=== PATIENT | male | born 1950 | race Caucasian/White ===

== ENCOUNTER → 2017-06-04 | Outpatient (CLI) | payer MEDICARE, OTHER ==
[2017-06-04 08:48] LABS: ALT 78 U/L (21-72); AST 43 U/L (17-59); Albumin 4.1 g/dL (3.5-5.0); Alkaline Phosphatase 65 U/L (38-126); Anion Gap 16 mmol/L; Blood Urea Nitrogen 14 mg/dL (9-20); Calcium 9.2 mg/dL (8.4-10.2); Carbon Dioxide 24 mmol/L (22-30); Chloride 103 mmol/L (98-107); Cholesterol 130 mg/dL (<200); Glucose 150 mg/dL (74-99); HDL Cholesterol 35 mg/dL (40-60); LDL Cholesterol,Calculated 59 mg/dL (0-99); Potassium 4.4 mmol/L (3.5-5.1); Sodium 143 mmol/L (137-145); Total Bilirubin 0.6 mg/dL (0.2-1.3); Total Protein 6.7 g/dL (6.3-8.2); Triglycerides 181 mg/dL (<150)
== END | disposition home or self-care (01) ==
LOC: LABWHC1 08:18
PROVIDERS: ATTEND Internal Medicine Interventional Cardiology
DX: E78.2 Mixed hyperlipidemia (principal)
CPT/HCPCS: 36415; 80053; 80061

== ENCOUNTER → 2018-02-11 | Outpatient (CLI) | payer MEDICARE, OTHER ==
[2018-02-11 17:38] LABS: Albumin 4.1 g/dL (3.80-4.90); Albumin/Globulin Ratio 2.56 (1.20-2.10); Anion Gap 9.2 mmol/L (4.00-12.00); Calcium 8.9 mg/dL (8.7-10.3); Carbon Dioxide 24.8 mmol/L (21.6-31.8); Globulin 1.6 g/dL (1.6-3.3); LDL Cholesterol,Calculated 75.2 mg/dL (0.0-131.0); Potassium 4.2 mmol/L (3.5-5.5); Total Bilirubin 0.5 mg/dL (0.3-1.2); Total Protein 5.7 g/dL (6.2-8.2); VLDL Calculation 27.8 mg/dL (5.00-40.00)
== END ==
LOC: LABWHC1 08:30
PROVIDERS: ATTEND Internal Medicine Interventional Cardiology
DX: E78.2 Mixed hyperlipidemia (principal)
CPT/HCPCS: 36415; 80053; 80061

== ENCOUNTER → 2018-08-16 | Outpatient (CLI) | payer MEDICARE, OTHER ==
[2018-08-16 16:13] LABS: African American GFR (CKD) 102.1 (60.0-200.0); Albumin 4.3 g/dL (3.80-4.90); Albumin/Globulin Ratio 2.39 (1.60-3.17); Anion Gap 10.4 mmol/L (4.00-12.00); BUN/Creat Ratio 12.22 Ratio (12.00-20.00); Calcium 9.2 mg/dL (8.7-10.3); Carbon Dioxide 24.6 mmol/L (21.6-31.8); Globulin 1.8 g/dL (1.6-3.3); LDL Cholesterol,Calculated 55.8 mg/dL (0.0-131.0); Potassium 4.4 mmol/L (3.5-5.5); Total Bilirubin 0.5 mg/dL (0.2-1.2); Total Protein 6.1 g/dL (6.2-8.2); VLDL Calculation 32.2 mg/dL (5.00-40.00)
== END | disposition home or self-care (01) ==
LOC: LABWHC1 09:58
PROVIDERS: ATTEND Internal Medicine Interventional Cardiology
DX: E78.2 Mixed hyperlipidemia (principal)
CPT/HCPCS: 36415; 80053; 80061

== ENCOUNTER → 2019-02-24 | Outpatient (CLI) | payer MEDICARE, OTHER ==
[2019-02-24 16:02] LABS: African American GFR (CKD) 89.2 (60.0-200.0); Albumin 4.4 g/dL (3.80-4.90); Albumin/Globulin Ratio 2.32 (1.60-3.17); Anion Gap 6.4 mmol/L (4.00-12.00); Calcium 9.5 mg/dL (8.7-10.3); Carbon Dioxide 27.6 mmol/L (21.6-31.8); Chol/HDL Ratio 4.18; Globulin 1.9 g/dL (1.6-3.3); LDL Cholesterol,Calculated 93.8 mg/dL (0.0-131.0); Potassium 5.4 mmol/L (3.5-5.5); Total Bilirubin 0.5 mg/dL (0.3-1.2); Total Protein 6.3 g/dL (6.2-8.2); VLDL Calculation 30.2 mg/dL (5.00-40.00)
== END | disposition home or self-care (01) ==
LOC: LABWHC1 09:02
PROVIDERS: ATTEND Internal Medicine Interventional Cardiology
DX: E78.2 Mixed hyperlipidemia (principal)
CPT/HCPCS: 36415; 80053; 80061

== ENCOUNTER → 2019-05-13 | Outpatient (CLI) | payer MEDICARE, OTHER ==
[2019-05-13 10:45] LABS: African American GFR (CKD) >90 (>60 ml/min/1.73 sqM); Anion Gap 12 mmol/L; Blood Urea Nitrogen 18 mg/dL (9-20); Carbon Dioxide 25 mmol/L (22-30); Chloride 102 mmol/L (98-107); Non-African American GFR(CKD) >90 (>60 ml/min/1.73 sqM); Potassium 4.4 mmol/L (3.5-5.1); Sodium 139 mmol/L (137-145)
[2019-05-13 10:57] LABS: HCT 42.7 % (39.0-53.0); MCH 31.1 pg (25.0-35.0); MCHC 32.9 g/dL (31.0-37.0); MCV 94.8 fL (80.0-100.0); Mean Platelet Volume 7.8; Platelet Count 308 k/uL (150-450); WBC 8.6 k/uL (3.8-10.6)
== END | disposition home or self-care (01) ==
LOC: LABWHC1 09:47
PROVIDERS: ATTEND Internal Medicine Interventional Cardiology
DX: Z01.818 Encounter for other preprocedural examination (principal); I70.213 Atherosclerosis of native arteries of extremities with intermittent claudication, bilateral legs
CPT/HCPCS: 36415; 80051; 82565; 84520; 85027

== ENCOUNTER → 2019-09-09 | Outpatient (CLI) | payer MEDICARE, OTHER ==
[2019-09-09 17:01] LABS: Chol/HDL Ratio 3.86; LDL Cholesterol,Calculated 46.8 mg/dL (0.0-131.0); VLDL Calculation 33.2 mg/dL (5.00-40.00)
== END | disposition home or self-care (01) ==
LOC: LABWHC1 08:51
PROVIDERS: ATTEND Nurse Practitioner Adult Health
DX: E78.2 Mixed hyperlipidemia (principal)
CPT/HCPCS: 36415; 80061

== ENCOUNTER → 2019-10-22 | Outpatient (CLI) | payer MEDICARE, OTHER ==
--- NOTE | 2019-10-22 12:53 | CT ---
EXAMINATION TYPE: CT lumbar spine wo con DATE OF EXAM: 10/22/2019 12:44 PM COMPARISON: None. HISTORY: spondylosis per order. CT DLP: 988.9 mGycm Automated exposure control for dose reduction was used. Unenhanced CT of the lumbar spine was performed. Bone and soft tissue window settings are submitted as well as coronal and sagittal reconstructions. There are 5 lumbar-type vertebra. And mild to moderate disc space near greatest posteriorly at L5-S1 level with some endplate sclerosis. Vertebral body heights are maintained. Alignment is satisfactory on sagittal images. Mild multilevel anterior and lateral spurring. No acute fracture or dislocation i s seen. Coronal images show slight spectral convex scoliotic curvature centered at L3 level. Sternal wires noted on localizer. Review of axial images shows T12-L1 level to appear within normal limits. Axial images at the L1-L2 level show mild broad disc bulge mildly effacing the anterior thecal sac, b ilateral neural foramina are patent. Axial images at the L2-L3 levels show mild facet degenerative changes bilaterally. Axial images at the L3-L4 levels with mild facet degenerative changes bilaterally. There is mild/mode rate broad-based posterior disc protrusion mildly effacing anterior thecal sac, there is tmve-eq-evqe rate bilateral anterior inferior neural foraminal narrowing. Axial images at the L4-L5 level show mild/moderate facet degenerative changes bilaterally. There is m oderate broad disc bulge with broad-based right paracentral/foraminal disc protrusion. There is effac ement of the anterior thecal sac. There is moderate right and mild left-sided intraventricular neurof oraminal narrowing. Axial images at the L5-S1 levels show moderate facet arthropathy bilaterally. There is left paracentr al spur disc complex axial image 75. There is mild bilateral neural foraminal narrowing. Moderate to severe calcified plaque abdominal aorta extends into iliac branch vessels. Paraspinal mus marlena bulk is maintained. IMPRESSION: Multilevel degenerative changes greatest at L4-L5 level as detailed above. Alignment all satisfactory. No paraspinal masses are identified. Lumbar segments are intact.
== END | disposition home or self-care (01) ==
LOC: RADCTMAIN 12:20
PROVIDERS: ATTEND Physical Medicine & Rehabilitation
DX: M47.816 Spondylosis without myelopathy or radiculopathy, lumbar region (principal)
CPT/HCPCS: 72131

== ENCOUNTER → 2020-03-22 | Outpatient (CLI) | payer MEDICARE ==
[2020-03-22 14:50] LABS: African American GFR (CKD) 100.6 (60.0-200.0); Albumin 4.4 g/dL (3.80-4.90); Albumin/Globulin Ratio 2.32 (1.60-3.17); Anion Gap 10.2 mmol/L (4.00-12.00); BUN/Creat Ratio 14.44 Ratio (12.00-20.00); Calcium 9.3 mg/dL (8.7-10.3); Carbon Dioxide 25.8 mmol/L (21.6-31.8); Chol/HDL Ratio 3.84; Globulin 1.9 g/dL (1.6-3.3); LDL Cholesterol,Calculated 38.8 mg/dL (0.0-131.0); Non-African American GFR(CKD) 86.8 (60.0-200.0); Potassium 4.5 mmol/L (3.5-5.5); Total Bilirubin 0.6 mg/dL (0.2-1.2); Total Protein 6.3 g/dL (6.2-8.2); VLDL Calculation 49.2 mg/dL (5.00-40.00)
== END | disposition home or self-care (01) ==
LOC: LABWHC1 09:08
PROVIDERS: ATTEND Internal Medicine Interventional Cardiology
DX: E78.2 Mixed hyperlipidemia (principal)
CPT/HCPCS: 36415; 80053; 80061

== ENCOUNTER → 2020-09-08 | Outpatient (CLI) | payer MEDICARE ==
[2020-09-08 22:53] LABS: Chol/HDL Ratio 3.82; LDL Cholesterol,Calculated 34.4 mg/dL (0.0-131.0); VLDL Calculation 44.6 mg/dL (5.00-40.00)
[2020-09-08 22:54] LABS: African American GFR (CKD) 105.6 (60.0-200.0); Albumin/Globulin Ratio 1.67 (1.60-3.17); Anion Gap 10.5 mmol/L (4.00-12.00); BUN/Creat Ratio 16.25 Ratio (12.00-20.00); Calcium 9.2 mg/dL (8.7-10.3); Carbon Dioxide 23.5 mmol/L (21.6-31.8); Globulin 2.4 g/dL (1.6-3.3); Non-African American GFR(CKD) 91.1 (60.0-200.0); Potassium 4.7 mmol/L (3.5-5.5); Total Bilirubin 0.4 mg/dL (0.2-1.2); Total Protein 6.4 g/dL (6.2-8.2)
== END | disposition home or self-care (01) ==
LOC: LABWHC1 08:56
PROVIDERS: ATTEND Internal Medicine Interventional Cardiology
DX: E78.2 Mixed hyperlipidemia (principal)
CPT/HCPCS: 36415; 80053; 80061

== ENCOUNTER 2020-11-15 06:30 | Day surgery (SDC) | payer MEDICARE ==
[2020-11-11 13:27] VITALS: BMI 29.5
[2020-11-15] MEDS ORDERED: ASPIRIN 325 MG TAB PO PRN (06:39)
[2020-11-15] MEDS ORDERED: ALPRAZolam 0.25 MG TAB PO PRN (06:39)
[2020-11-15] MEDS ORDERED: SODIUM CHLORIDE 0.9% 1,000 ML in EMPTY BAG 1 BAG IV ONE (06:39)
[2020-11-15 07:06] LABS: Glucose,Whole Blood 191 mg/dL (75-99)
[2020-11-15 07:24] VITALS: TEMP 98.1
[2020-11-15 07:30] LABS: Basophils # (A) 0.1 k/uL (0-0.2); Basophils % (A) 1 %; Eosinophils # (A) 0.3 k/uL (0-0.7); Eosinophils % (A) 4 %; HGB 13.3 gm/dL (13.0-17.5); Lymphocytes # (A) 1.7 k/uL (1.0-4.8); Lymphocytes % (A) 25 %; MCH 32.1 pg (25.0-35.0); MCV 94.3 fL (80.0-100.0); Mean Platelet Volume 7.7; Monocytes # (A) 0.5 k/uL (0-1.0); Monocytes % (A) 8 %; Neutrophils # (A) 4.3 k/uL (1.3-7.7); Neutrophils % (A) 61 %; Platelet Count 266 k/uL (150-450); RBC 4.14 m/uL (4.30-5.90); RDW 12.6 % (11.5-15.5)
[2020-11-15] MEDS ORDERED: LIDOCAINE 1% INJ 10MG/ML (20 ML MDV) SQ ONE (07:41)
[2020-11-15] MEDS ORDERED: MIDAZOLAM 2 MG/2 ML VIAL IV ONE (07:43)
[2020-11-15] MEDS ORDERED: IOPAMIDOL-250 100ML BTL INTRAARTER ONE (07:52)
[2020-11-15 07:55] LABS: African American GFR (CKD) >90 (>60 ml/min/1.73 sqM); Anion Gap 12 mmol/L; Blood Urea Nitrogen 15 mg/dL (9-20); Calcium 9.3 mg/dL (8.4-10.2); Carbon Dioxide 22 mmol/L (22-30); Chloride 107 mmol/L (98-107); Glucose 198 mg/dL (74-99); Non-African American GFR(CKD) >90 (>60 ml/min/1.73 sqM); Potassium 3.9 mmol/L (3.5-5.1); Sodium 141 mmol/L (137-145)
[2020-11-15] MEDS ORDERED: SODIUM CHLORIDE 0.9% 1,000 ML IV SCH (08:00)
--- NOTE | 2020-11-15 10:10 | PCN ---
PROCEDURE NOTE DATE OF SERVICE: 11/15/2020 PERFORMING PHYSICIAN: Vinny Jimenez M.D. PROCEDURE PERFORMED: 1. Abdominal aortogram. 2. Bilateral lower extremity runoff. INDICATION: This is a 70-year-old gentleman who sees Dr. Sena regularly with peripheral arterial disease and prior revascularization of the left iliac in the past who was experiencing symptoms of intermittent claudication in bilateral lower extremities. He underwent an arterial duplex study, the results of which were abnormal, and for that reason he was sent for an angiogram. APPROACH: Right common femoral artery. COMPLICATIONS: None. LEVEL OF SEDATION: Moderate, with sedation length of 14 minutes. PROCEDURE DESCRIPTION: After obtaining informed consent, the patient was brought to the cardiac cath laboratory. The right common femoral artery was cannulated using micropuncture technique. The micropuncture wire passed easily. Then I placed a 5-Irish sheath at the right common femoral artery. Please note that the right common femoral artery was cannulated using micropuncture technique under ultrasound guidance. An abdominal aortogram and bilateral lower extremity runoff were performed using 5- Irish pigtail catheter which was initially placed at the level of the renal arteries. Then it was pulled into above the bifurcation of the aorta into right and left common iliac arteries. The procedure was completed without any complication. SELECTIVE PERIPHERAL ANGIOGRAM: 1. The aorta appeared to have mild to moderate diffuse disease without any high-grade stenosis and without any aneurysmal formation. Please note that the aorta is calcified. 2. Common iliac arteries. The right common iliac artery appeared to have mild disease only. The left common iliac artery also appeared to have mild disease only. 3. Internal iliac arteries. Both are patent. 4. Common external iliac arteries. The right external iliac artery is occluded and the left external iliac artery is stented with critical disease that appeared to be in- stent as well as de [place]. 5. Common femoral arteries. Both appeared to have intermediate disease bilaterally. 6. Profundae. Both profundae are patent. 7. SFA. The right SFA has severe disease by the Mohit canal and the left SFA has a focal lesion that appeared to be in the range of 80%. 8. Popliteal arteries. Both popliteals appeared to have mild disease only. 9. Below the knee. The arteries below the knee were not well visualized or opacified. CONCLUSION: 1. Critical bilateral external iliac artery disease. 2. Critical bilateral SFA disease. POSTPROCEDURE MANAGEMENT: 1. LEATHER GOODS SALES REPRESENTATIVE of the right and left iliac arteries. 2. LEATHER GOODS SALES REPRESENTATIVE of the right and left SFA if the patient remains symptomatic. MMPUJAL / IJN: [id number] /
[2020-11-15 11:11] VITALS: BP 88/55; PULSE 50; RESP 16
--- NOTE | 2020-11-15 11:35 | IR ---
EXAMINATION TYPE: IR angio abdominal w runoff DATE OF EXAM: 11/15/2020 COMPARISON: NONE HISTORY: Fluoroscopy time. Fluoroscopy was provided to the referring clinician.
== END 2020-11-15 13:42 | disposition home or self-care (01) ==
LOC: CATHCVL 06:30
PROVIDERS: ATTEND Internal Medicine Interventional Cardiology
DX: I25.10 Atherosclerotic heart disease of native coronary artery without angina pectoris (principal); Z20.822 Contact with and (suspected) exposure to COVID-19
CPT/HCPCS: 36200; 75625; 75716; 76937; 80048; 85025; 87635; C1769 ×3; C1894; J2250; J2001; Q9966

== ENCOUNTER → 2020-11-23 | Outpatient (CLI) | payer MEDICARE ==
[2020-11-23 14:40] LABS: HGB 13.7 gm/dL (13.0-17.5); MCH 31.3 pg (25.0-35.0); MCHC 33.4 g/dL (31.0-37.0); MCV 93.7 fL (80.0-100.0); Mean Platelet Volume 7.6; Platelet Count 292 k/uL (150-450); RBC 4.38 m/uL (4.30-5.90); RDW 13.4 % (11.5-15.5); WBC 6.8 k/uL (3.8-10.6)
[2020-11-23 14:55] LABS: African American GFR (CKD) >90 (>60 ml/min/1.73 sqM); Anion Gap 10 mmol/L; Blood Urea Nitrogen 13 mg/dL (9-20); Carbon Dioxide 25 mmol/L (22-30); Chloride 105 mmol/L (98-107); Non-African American GFR(CKD) 87 (>60 ml/min/1.73 sqM); Potassium 4.7 mmol/L (3.5-5.1); Sodium 140 mmol/L (137-145)
== END | disposition home or self-care (01) ==
LOC: LABPAT 13:38
PROVIDERS: ATTEND Internal Medicine Interventional Cardiology
DX: Z01.812 Encounter for preprocedural laboratory examination (principal); I70.213 Atherosclerosis of native arteries of extremities with intermittent claudication, bilateral legs
CPT/HCPCS: 36415; 80051; 82565; 84520; 85027

== ENCOUNTER 2020-12-08 07:22 | Day surgery (SDC) | payer MEDICARE ==
[2020-11-29 09:22] VITALS: BMI 29.5
[~2020-12-08 07:22] MED LIST: ALPRAZolam 0.25 MG TAB PO PRN; ASPIRIN 325 MG TAB PO PRN; SODIUM CHLORIDE 0.9% 1,000 ML in EMPTY BAG 1 BAG IV ONE
[2020-12-08] MEDS ORDERED: SODIUM CHLORIDE 0.9% 1,000 ML IV ONE (07:36)
[2020-12-08 07:51] LABS: Glucose,Whole Blood 161 mg/dL (75-99)
[2020-12-08] MEDS: MIDAZOLAM 2 MG/2 ML VIAL IV ONE ×2 (09:54→10:08)
[2020-12-08] MEDS: LIDOCAINE 1% INJ 10MG/ML (20 ML MDV) SQ ONE ×2 (10:13→10:27)
[2020-12-08] MEDS ORDERED: VERAPAMIL SYRINGE (5 MG/10 ML) INTRAARTER ONE (10:30)
[2020-12-08] MEDS ORDERED: IOPAMIDOL-250 100ML BTL INTRAARTER ONE (11:42)
[2020-12-08] MEDS ORDERED: CLOPIDOGREL 75 MG TAB PO ONE (11:47)
[2020-12-08] MEDS ORDERED: NITROGLYCERIN SL TABS 0.4 MG TAB SUBLINGUAL PRN (11:53)
[2020-12-08] MEDS ORDERED: SODIUM CHLORIDE 0.9% 1,000 ML in EMPTY BAG 1 BAG IV SCH (12:00)
--- NOTE | 2020-12-08 12:42 | IR ---
Fluoroscopy HISTORY: Peripheral vascular occlusive disease 2.1 minutes fluoroscopy time supplied to the referring clinician. 228 intraoperative C-arm images do cument the procedure. See dictated report from cardiology.
--- NOTE | 2020-12-08 13:13 | PCN ---
PROCEDURE NOTE PERCUTANEOUS PERIPHERAL INTERVENTION: DATE OF SERVICE: 12/08/2020 PERFORMING PHYSICIAN: Vinny Jimenez M.D. PROCEDURES PERFORMED: 1. Successful atherectomy of the left SFA using the HawkOne device. 2. Successful balloon angioplasty of left SFA using a 5 mm drug-coated balloon with an excellent angiographic result and reduction of stenosis from 100% to 0%. 3. Intravascular ultrasound (IVUS) of the left SFA and left iliac artery. 4. Successful balloon angioplasty of the left external iliac artery. 5. Successful stenting of the left common iliac artery. 6. Pressure gradient across the left common iliac artery. 7. Selective angiogram of the left SFA and left external iliac as well as left common iliac artery. 8. Ultrasound-guided access of the right brachial artery. INDICATION: This is a 70-year-old gentleman who sees Dr. Sena regularly with a history of coronary artery disease as well as diabetes, hypertension, dyslipidemia and lower extremity peripheral arterial disease who was experiencing bilateral lower extremity intermittent claudication, worse on the left side than the right side. He underwent an angiogram recently that revealed occluded bilateral iliac with occluded left SFA. He was brought today to undergo SLEEVE BASTER of the left iliac and left SFA. APPROACH: Right brachial artery. COMPLICATIONS: None. LEVEL OF SEDATION: Moderate, with sedation length of minutes. PROCEDURE DESCRIPTION: After obtaining informed consent, the patient was brought to the cardiac laboratory worker. Initially I attempted accessing the right radial artery, but I was unable to because the pulse was not great. Finally I was able to access the right radial artery using micropuncture technique under ultrasound guidance. The micropuncture wire passed easily. Then I placed a 6-Solomon Islander sheath 11 cm at the right radial artery. At that point anticoagulation was initiated using heparin with continuous ACT monitoring throughout the procedure. Subsequently I did advance an 0.[address] to the ascending aorta under fluoroscopic guidance. After that I did exchange my 11 cm 6-Solomon Islander sheath for a cm 6-Solomon Islander sheath over an 0.035 Glidewire, and the sheath was advanced all the way to the distal aorta just above the bifurcation into right and left common iliac arteries. After that I did cross the BUS REPAIR SUPERVISOR of the right external iliac artery and advanced the wire all the way to the SFA, where also I crossed a BUS REPAIR SUPERVISOR in the right SFA using the 0.035 stiff Glidewire. The wire was exchanged to an 0.014 wire. Intravascular ultrasound identified the diameter of the left SFA of 5 mm and of the iliac of 6 mm. I did atherectomy of the left SFA using the HawkOne device with extraction of significant amount of plaque. Subsequently balloon angioplasty was initially performed using 5 mm regular balloon and then 5 mm drug-coated balloon. The final angiogram showed excellent angiographic results and the procedure was completed without any complication on the left SFA. For the left external iliac artery, I did balloon angioplasty using 6 mm and then 7 mm balloon. The following angiogram showed excellent angiographic results for the in- stent restenosis, and because of that I decided not to deploy another stent in the left external iliac artery. Angiographic results were good. For the lesion in the left common iliac artery which was angiographically about 60%, I did a pressure gradient across it and that came in to be about mmHg, which is significant and above the threshold of hemodynamic significance. At that point I decided to stent that. I deployed an 8 x 29 mm balloon-expandable stent where the stent was positioned under fluoroscopic guidance and deployed under fluoroscopic guidance as well. The following angiogram showed excellent angiographic results. I was able to feel a great pulse in the left groin after that. After that I did exchange my long sheath for a short sheath using an 0.035 stiff Glidewire. Then the sheath will be secured in place and the patient is going to stay overnight and go home tomorrow. POST-PROCEDURE MANAGEMENT: 1. Dual anti-platelet therapy. 2. Aggressive cholesterol control. 3. The patient will be scheduled to undergo SLEEVE BASTER of the right iliac in the next few weeks. MMODL / IJN: [id number] /
[2020-12-08 17:22] LABS: Glucose,Whole Blood 151 mg/dL (75-99)
[2020-12-08 20:33] LABS: Glucose,Whole Blood 230 mg/dL (75-99)
[2020-12-08] MEDS ORDERED: EZETIMIBE 10 MG TAB PO SCH (21:00)
[2020-12-08] MEDS ORDERED: ATORVASTATIN 40 MG TAB PO SCH (21:00)
[2020-12-09 06:52] LABS: Basophils % (A) 1 %; Eosinophils # (A) 0.2 k/uL (0-0.7); Eosinophils % (A) 3 %; HGB 13.4 gm/dL (13.0-17.5); Lymphocytes # (A) 1.4 k/uL (1.0-4.8); Lymphocytes % (A) 19 %; MCH 31.3 pg (25.0-35.0); MCHC 32.7 g/dL (31.0-37.0); MCV 95.7 fL (80.0-100.0); Mean Platelet Volume 7.6; Monocytes # (A) 0.5 k/uL (0-1.0); Monocytes % (A) 7 %; Neutrophils # (A) 4.9 k/uL (1.3-7.7); Neutrophils % (A) 68 %; Platelet Count 248 k/uL (150-450); RBC 4.28 m/uL (4.30-5.90); RDW 12.9 % (11.5-15.5); WBC 7.2 k/uL (3.8-10.6)
[2020-12-09 07:01] LABS: African American GFR (CKD) >90 (>60 ml/min/1.73 sqM); Anion Gap 9 mmol/L; Blood Urea Nitrogen 12 mg/dL (9-20); Calcium 9.1 mg/dL (8.4-10.2); Carbon Dioxide 21 mmol/L (22-30); Chloride 110 mmol/L (98-107); Glucose 178 mg/dL (74-99); Non-African American GFR(CKD) >90 (>60 ml/min/1.73 sqM); Sodium 140 mmol/L (137-145)
[2020-12-09 07:33] LABS: Glucose,Whole Blood 162 mg/dL (75-99)
[2020-12-09 08:23] VITALS: BP 138/55; RESP 16; TEMP 97.4
[2020-12-09 08:45] VITALS: PULSE 66
[2020-12-09] MEDS ORDERED: lisinopriL 10 MG TAB PO SCH (09:00)
[2020-12-09] MEDS ORDERED: amLODIPine 10 MG TAB PO SCH (09:00)
[2020-12-09] MEDS ORDERED: ASPIRIN 81 MG PO SCH (09:00)
[2020-12-09] MEDS ORDERED: METOPROLOL TARTRATE 50 MG TAB PO SCH (09:00)
--- NOTE | 2020-12-09 09:25 | P.DS ---
Providers Date of admission: 12/08/2020 Attending physician: Vinny Jimenez Primary care physician: Zachary Tobias MD Hospital Course: This is a 70-year-old gentleman with a past medical history significant for lower 70s peripheral arterial disease was admitted to the hospital yesterday and underwent successful recanalizing chronically occluded left iliac and left SFA from right brachial approach. He was seen this morning. The right brachial site is soft and nontender without hematoma with a grade pulse. The patient did have a great pulse in the left groin. He is going to be discharged home on dual antiplatelet therapy. He scheduled to undergo a CROP ADJUSTER of the right iliac on December 22. Plan - Discharge Summary Discharge Rx Participant: Yes New Discharge Prescriptions: New Clopidogrel Bisulfate [Plavix] 75 mg PO DAILY #90 tab Continue Ezetimibe [Zetia] 10 mg PO HS Aspirin [Adult Low Dose Aspirin EC] 81 mg PO DAILY amLODIPine BESYLATE 10 mg PO DAILY Metoprolol Tartrate [Lopressor] 100 mg PO DAILY lisinopriL [Zestril] 10 mg PO DAILY Atorvastatin [Lipitor] 40 mg PO HS Nitroglycerin Sl Tabs [Nitrostat] 0.4 mg SUBLINGUAL Q5M PRN PRN Reason: Chest Pain Discontinued metFORMIN HCL [Glucophage] 1,000 mg PO BID Discharge Medication List Aspirin [Adult Low Dose Aspirin EC] 81 mg PO DAILY 05/15/19 [History] Atorvastatin [Lipitor] 40 mg PO HS 05/15/19 [History] Ezetimibe [Zetia] 10 mg PO HS 05/15/19 [History] Metoprolol Tartrate [Lopressor] 100 mg PO DAILY 05/15/19 [History] Nitroglycerin Sl Tabs [Nitrostat] 0.4 mg SUBLINGUAL Q5M PRN 05/15/19 [History] amLODIPine BESYLATE 10 mg PO DAILY 05/15/19 [History] lisinopriL [Zestril] 10 mg PO DAILY 05/15/19 [History] Clopidogrel Bisulfate [Plavix] 75 mg PO DAILY #90 tab 12/09/20 [Rx] Follow up Appointment(s)/Referral(s): Darien Sena MD [STAFF PHYSICIAN] - 1 Week (office will call with appointment .) Patient Instructions/Handouts: Peripheral Artery Disease (DC), Peripheral Vascular Angioplasty (GEN), Peripheral Vascular Stent Placement (DC) Activity/Diet/Wound Care/Special Instructions: no metformin for 48 hours.
[2020-12-10] MEDS ORDERED: metFORMIN 500 MG TAB PO SCH (21:00)
== END 2020-12-09 11:20 | disposition home or self-care (01) ==
LOC: CATHCVL 07:22 → 6NMEDSUR 11:44 → CATHCVL 12-09 11:20
PROVIDERS: ATTEND Internal Medicine Interventional Cardiology
DX: I25.10 Atherosclerotic heart disease of native coronary artery without angina pectoris (principal); I70.213 Atherosclerosis of native arteries of extremities with intermittent claudication, bilateral legs; E11.51 Type 2 diabetes mellitus with diabetic peripheral angiopathy without gangrene; E78.5 Hyperlipidemia, unspecified; I10 Essential (primary) hypertension; Z79.02 Long term (current) use of antithrombotics/antiplatelets; Z79.82 Long term (current) use of aspirin; Z79.84 Long term (current) use of oral hypoglycemic drugs; Z20.822 Contact with and (suspected) exposure to COVID-19
CPT/HCPCS: 37221; 37222; 37225; 37252; 37253; 80048; 85025; 87635; C1894 ×3; C1769 ×5; C1725 ×3; C1876; C1714; C1753; C2623; J2250; J2001; J1644; Q9966

== ENCOUNTER 2020-12-22 10:27 | Day surgery (SDC) | payer MEDICARE ==
[2020-12-21 09:18] VITALS: BMI 29.5
[2020-12-22 10:57] LABS: Glucose,Whole Blood 190 mg/dL (75-99)
[2020-12-22] MEDS ORDERED: CLOPIDOGREL 75 MG TAB ONE (10:57)
[2020-12-22 11:11] LABS: Basophils # (A) 0.1 k/uL (0-0.2); Basophils % (A) 1 %; Eosinophils # (A) 0.3 k/uL (0-0.7); Eosinophils % (A) 4 %; HCT 41.1 % (39.0-53.0); Lymphocytes # (A) 1.5 k/uL (1.0-4.8); Lymphocytes % (A) 19 %; MCH 31.8 pg (25.0-35.0); MCHC 34.1 g/dL (31.0-37.0); MCV 93.2 fL (80.0-100.0); Mean Platelet Volume 7.9; Monocytes # (A) 0.3 k/uL (0-1.0); Monocytes % (A) 5 %; Neutrophils # (A) 5.4 k/uL (1.3-7.7); Neutrophils % (A) 70 %; Platelet Count 335 k/uL (150-450); RBC 4.41 m/uL (4.30-5.90); RDW 12.5 % (11.5-15.5); WBC 7.7 k/uL (3.8-10.6)
[2020-12-22 11:27] LABS: African American GFR (CKD) >90 (>60 ml/min/1.73 sqM); Anion Gap 13 mmol/L; Blood Urea Nitrogen 16 mg/dL (9-20); Calcium 9.6 mg/dL (8.4-10.2); Carbon Dioxide 21 mmol/L (22-30); Chloride 104 mmol/L (98-107); Glucose 204 mg/dL (74-99); Non-African American GFR(CKD) >90 (>60 ml/min/1.73 sqM); Potassium 4.3 mmol/L (3.5-5.1); Sodium 138 mmol/L (137-145)
[2020-12-22] MEDS ORDERED: LIDOCAINE 1% INJ 10MG/ML (20 ML MDV) SQ ONE ×2 (12:28→13:57)
[2020-12-22] MEDS ORDERED: HYDROmorphone 1 MG/ML 1 ML SYRINGE IVP ONE (12:29)
[2020-12-22] MEDS ORDERED: MIDAZOLAM 2 MG/2 ML VIAL IV ONE (12:29)
[2020-12-22] MEDS ORDERED: SODIUM CHLORIDE 0.9% 500 ML 500 ML with niCARdipine 6.25 MG, NITROGLYCERIN-D5W PMX 0.05... IV ONE ×4 (12:51)
[2020-12-22] MEDS ORDERED: FLUMAZENIL 0.1 MG/ML 5 ML VIAL IVP ONE (13:30)
[2020-12-22] MEDS ORDERED: IOPAMIDOL-250 100ML BTL INTRAARTER ONE (14:45)
[2020-12-22] MEDS ORDERED: CLOPIDOGREL 75 MG TAB PO ONE (14:45)
--- NOTE | 2020-12-22 15:21 | IR ---
Fluoroscopy HISTORY: Pain in right leg 30.7 minutes fluoroscopy time supplied to the referring clinician. 205 intraoperative C-arm images d ocument the procedure. See dictated report from cardiology.
[2020-12-22 15:37] LABS: Glucose,Whole Blood 183 mg/dL (75-99)
[2020-12-22 20:02] LABS: Glucose,Whole Blood 149 mg/dL (75-99)
[2020-12-23 04:53] VITALS: BP 134/61; PULSE 60; RESP 16; TEMP 97.8
[2020-12-23 05:53] LABS: Glucose,Whole Blood 121 mg/dL (75-99)
--- NOTE | 2020-12-23 11:02 | DS ---
DISCHARGE SUMMARY ADMISSION DATE: December 22, 2020. DISCHARGE DATE: December 23, 2020. BRIEF HISTORY: This is a 70-year-old gentleman who underwent yesterday successful kissing stents of the right and left iliac arteries as well as right external iliac artery with extremely complex lesions. The procedure was performed from the right and left groins. He was seen this morning. He does have great bilateral femoral pulses. He is going to be discharged on dual anti-platelet therapy as well as high-intensity statin. He still has critical disease involving the right SFA in the proximal as well as distal portion. He needs to undergo a TRENCHER DRIVER of the right SFA which improves his outflow to keep the right external iliac stent patent. He will be scheduled to have that as an outpatient. For now, he is going to be discharged home. Please note that his blood work was reviewed and seems to be within normal limits. AHMET / KIM: [id number] /
--- NOTE | 2020-12-23 11:14 | AN ---
ANGIOGRAPHY REPORT DATE OF PROCEDURE: December 22, 2020. PERFORMING PHYSICIAN: Vinny Jimenez MD. PROCEDURE PERFORMED: 1. Successful stenting of the right and left common iliac arteries using 8 x 29 and 8 x 29 mm balloon expandable stent in a kissing technique with an excellent angiographic results. 2. Successful stenting of the right external iliac artery using 8 x 150 self expandable stent and that was Everflex with an excellent angiographic results. 3. Intravascular ultrasound (IVUS) of the right common and right external iliac artery. 4. Selective bilateral common iliac arteries angiogram. 5. Selective bilateral common femoral arteries angiogram. 6. Ultrasound-guided access of the right and left common femoral arteries. INDICATION: This is a very pleasant 70-year-old gentleman who sees Dr. Sena regularly, who is known to have severe lower extremities peripheral arterial disease and was experiencing bilateral lower extremities intermittent claudication interfering with his daily activities. He underwent an angiogram recently and that revealed critical left iliac and occluded right iliac artery as well as critical disease involving the right SFA. He underwent stenting of the left iliac and he was brought today to undergo stenting of the right iliac artery. APPROACH: Right and left common femoral artery. COMPLICATION: None. LEVEL OF SEDATION: Moderate with sedation length of 130 minutes. PROCEDURE DESCRIPTION: After obtaining an informed consent, the patient was brought to the cardiac clinical laboratory medical director. The left common femoral artery was cannulated using micropuncture technique under ultrasound guidance, the micropuncture wire passed easily then I placed a 6-Eritrean 70 cm sheath at the left common femoral artery. Please note, that the artery was dilated using a short 6-Eritrean dilator first. At that point, anticoagulation was initiated using heparin with continuous ACT monitoring throughout the procedure. Trying to select the right SFA going up and over from the left femoral artery was unsuccessful. Further evaluation under angiogram revealed that the stent in the left iliac artery was moved toward the aorta and partially into the right common iliac artery. At that point, I realized that going up and over will be extremely hard and we need to recanalized the right and left common iliac artery by doing kissing stents. At that point, I did access the right common femoral artery using micropuncture technique under ultrasound guidance, the micropuncture wire passed easily. Then I placed a 6-Eritrean 23 cm sheath at the left common femoral artery. After advancing both wires from the left and right groin into the aorta, I did predilatation using 6 mm balloon. The predilatation was performed also using a kissing technique. After that, I did kissing stents of the right and left common iliac arteries using 8 x 29 and 8 x 29 Omnilink balloon expandable stents where the stents were positioned under fluoroscopy guidance and using angiogram for guidance and both stents were deployed simultaneously. The following angiogram showed excellent angiographic results. After that, and because I was not quite sure about the severity of the lesion in the left external iliac artery, after we passed in the right external iliac artery, after we passed multiple devices across it, I did intravascular ultrasound which showed diffuse disease involving the whole segment of the right external iliac, extends from the stent in the common iliac all the way to the inguinal ligament. I pre-dilated that lesion using 6 mm balloon before I deployed 8 x 150 mm self-expandable stent which was Everflex and the stent was positioned under fluoroscopy guidance and deployed under fluoroscopic guidance. Postdilatation was performed using 7 mm balloon. Following angiogram showed excellent angiographic results and the procedure was completed without any complication. After that, I did exchange my 2 sheaths in the right and left groin into a short 11 cm 6-Eritrean sheath. Selective bilateral common femoral arteries angiogram was performed and the procedure was completed without any complication. POSTPROCEDURE MANAGEMENT: 1. Dual anti-platelet therapy. 2. Aggressive cholesterol control. 3. LOAN AUDITOR of the right SFA. MMODL / IJN: [id number] /
== END 2020-12-23 08:09 | disposition home or self-care (01) ==
LOC: CATHCVL 10:27 → 3SCARD 14:32 → CATHCVL 12-23 08:09
PROVIDERS: ATTEND Internal Medicine Interventional Cardiology
DX: I70.213 Atherosclerosis of native arteries of extremities with intermittent claudication, bilateral legs (principal); E11.51 Type 2 diabetes mellitus with diabetic peripheral angiopathy without gangrene; I25.10 Atherosclerotic heart disease of native coronary artery without angina pectoris; I10 Essential (primary) hypertension; E78.2 Mixed hyperlipidemia; F17.210 Nicotine dependence, cigarettes, uncomplicated; Z20.822 Contact with and (suspected) exposure to COVID-19; Z95.1 Presence of aortocoronary bypass graft; I08.1 Rheumatic disorders of both mitral and tricuspid valves; Z79.82 Long term (current) use of aspirin; Z79.899 Other long term (current) drug therapy
CPT/HCPCS: 37221; 37223; 37252; 80048; 85025; 87635; C1769 ×7; C1894 ×5; C1725 ×3; C1876 ×2; C1753; J2250; J2001; J1170; J1644; Q9966

== ENCOUNTER 2021-01-14 09:22 | Day surgery (SDC) | payer MEDICARE ==
[2021-01-12 09:51] VITALS: BMI 29.0
[~2021-01-14 09:22] MED LIST changes: +HEPARIN SODIUM,PORCINE 10,000 UNIT in SODIUM CHLORIDE 0.9% 1,000 ML IRRIGATION PRN; +HEPARIN SODIUM,PORCINE 2,500 UNIT in SODIUM CHLORIDE 0.9% 250 ML IRRIGATION PRN; +ZOLPIDEM 5 MG TAB PO PRN
[2021-01-14 09:51] LABS: Glucose,Whole Blood 194 mg/dL (75-99)
[2021-01-14 09:59] VITALS: RESP 18; TEMP 97.4
[2021-01-14] MEDS ORDERED: ASPIRIN 81 MG ONE (10:01)
[2021-01-14] MEDS ORDERED: ASPIRIN 81 MG PO ONE (10:06)
[2021-01-14] MEDS ORDERED: LIDOCAINE 1% INJ 10MG/ML (20 ML MDV) ONE (11:49)
[2021-01-14] MEDS ORDERED: IV FLUID CONTINUATION 700 ML IV ONE (11:52)
[2021-01-14] MEDS ORDERED: LIDOCAINE 1% INJ 10MG/ML (20 ML MDV) SQ ONE (12:19)
[2021-01-14] MEDS ORDERED: MIDAZOLAM 2 MG/2 ML VIAL IV ONE (12:22)
[2021-01-14] MEDS ORDERED: SODIUM CHLORIDE 0.9% 500 ML 500 ML with niCARdipine 6.25 MG, NITROGLYCERIN-D5W PMX 0.05... IV ONE ×8 (12:25→12:45)
[2021-01-14] MEDS ORDERED: HEPARIN SODIUM 1,000 UN/ML (10ML VL) IV ONE (12:30)
[2021-01-14] MEDS ORDERED: CLOPIDOGREL 75 MG TAB PO ONE (13:26)
[2021-01-14] MEDS ORDERED: IOPAMIDOL-250 100ML BTL INTRAARTER ONE (13:26)
[2021-01-14] MEDS ORDERED: NITROGLYCERIN SL TABS 0.4 MG TAB SUBLINGUAL PRN (13:30)
[2021-01-14] MEDS ORDERED: SODIUM CHLORIDE 0.9% 1,000 ML in EMPTY BAG 1 BAG IV SCH (13:45)
--- NOTE | 2021-01-14 14:33 | IR ---
EXAMINATION TYPE: IR angio lower extremity BI DATE OF EXAM: 01/14/2021 COMPARISON: NONE HISTORY: Right foot pain Fluoroscopy support supplied to the referring clinician. See dictated report from cardiology, 8.4 mi nutrudi fluoroscopy time, 200 intraoperative images document the procedure
--- NOTE | 2021-01-14 15:55 | AN ---
ANGIOGRAPHY REPORT DATE OF SERVICE: January 14, 2021. PERFORMING PHYSICIAN: Vinny Jimenez MD. PROCEDURE PERFORMED: 1. Atherectomy of the right SFA using the orbital atherectomy device and using 1.5 mm jb. 2. Intravascular ultrasound (IVUS) of the right SFA. 3. Successful balloon angioplasty of the right SFA using a 5 mm x 120 mm Chocolate balloon with an excellent angiographic results. 4. Ultrasound-guided access of the right posterior tibial artery. INDICATION: Subtotally occluded right SFA in this 70-year-old gentleman who is known to have right lower extremity intermittent claudication. APPROACH: Right posterior tibial artery. COMPLICATION: None. LEVEL OF SEDATION: Moderate with sedation length of 61 minute. PROCEDURE DESCRIPTION: After obtaining informed consent, the patient was brought to the cardiac tree tapping laborer. The right posterior tibial artery was cannulated using micropuncture technique under ultrasound guidance, the micropuncture wire passed easily. Then I placed a slender 5/6- Wolof sheath at the right posterior tibial artery. Anticoagulation was initiated using heparin with continuous ACT monitoring throughout the procedure. Subsequently, the side-arm of the sheath was connected into a cocktail of heparin and verapamil, and nitroglycerin. After that, I did right lower extremity angiogram with injection through the study through 035 CXI catheter. That revealed critical disease involving the right SFA. I did intravascular ultrasound and subsequently I realized that the diameter about 5-6 mm. I did the atherectomy after I placed the ViperWire. The atherectomy was performed using the orbital atherectomy device. Then I did balloon angioplasty initially using 5 mm chocolate and a 5 mm DCB. The final angiogram showed excellent angiographic results and the procedure was completed without any complication. POSTPROCEDURE MANAGEMENT: 1. Dual anti-platelet therapy. 2. Discharge home in the next 4-6 hours. MMODL / IJN: [id number] /
[2021-01-14 16:21] VITALS: PULSE 54
[2021-01-14 16:22] VITALS: BP 99/56
[2021-01-14] MEDS ORDERED: EZETIMIBE 10 MG TAB PO SCH (21:00)
[2021-01-14] MEDS ORDERED: ATORVASTATIN 40 MG TAB PO SCH (21:00)
[2021-01-15] MEDS ORDERED: CLOPIDOGREL 75 MG TAB PO SCH (09:00)
[2021-01-15] MEDS ORDERED: amLODIPine 10 MG TAB PO SCH (09:00)
[2021-01-15] MEDS ORDERED: ASPIRIN 81 MG PO SCH (09:00)
[2021-01-15] MEDS ORDERED: lisinopriL 10 MG TAB PO SCH (09:00)
[2021-01-15] MEDS ORDERED: METOPROLOL TARTRATE 50 MG TAB PO SCH (09:00)
== END 2021-01-14 17:30 | disposition home or self-care (01) ==
LOC: CATHCVL 09:22
PROVIDERS: ATTEND Internal Medicine Interventional Cardiology
DX: I70.211 Atherosclerosis of native arteries of extremities with intermittent claudication, right leg (principal); I25.10 Atherosclerotic heart disease of native coronary artery without angina pectoris; I65.22 Occlusion and stenosis of left carotid artery; I10 Essential (primary) hypertension; Z20.822 Contact with and (suspected) exposure to COVID-19; E78.2 Mixed hyperlipidemia; E11.51 Type 2 diabetes mellitus with diabetic peripheral angiopathy without gangrene; Z72.0 Tobacco use; Z95.1 Presence of aortocoronary bypass graft; Z79.02 Long term (current) use of antithrombotics/antiplatelets; Z79.82 Long term (current) use of aspirin; Z79.899 Other long term (current) drug therapy
CPT/HCPCS: 37225; 37252; 87635; C1894 ×2; C1769 ×6; C1714; C1753; C2623; C1725; J2250; J2001; J1644 ×2; Q9966

== ENCOUNTER → 2021-06-20 | Outpatient (CLI) | payer MEDICARE ==
[2021-06-20 15:47] LABS: ALT 41 U/L (10-49); AST 32 U/L (14-35); African American GFR (CKD) 100.5 (60.0-200.0); Albumin 4.2 g/dL (3.8-4.9); Albumin/Globulin Ratio 1.67 (1.60-3.17); Alkaline Phosphatase 82 U/L (41-126); BUN/Creat Ratio 11.27 Ratio (12.00-20.00); Calcium 9.3 mg/dL (8.7-10.3); Carbon Dioxide 22.8 mmol/L (20.0-27.5); Chloride 104 mmol/L (96-109); Chol/HDL Ratio 3.63 Ratio; Globulin 2.5 g/dL (1.6-3.3); Glucose 178 mg/dL (70-110); LDL Cholesterol,Calculated 37.7 mg/dL (0.0-131.0); Non-African American GFR(CKD) 86.8 (60.0-200.0); Potassium 4.6 mmol/L (3.5-5.5); Sodium 140 mmol/L (135-145); Total Protein 6.7 g/dL (6.2-8.2)
== END | disposition home or self-care (01) ==
LOC: LABWHC1 09:05
PROVIDERS: ATTEND Internal Medicine Interventional Cardiology
DX: E78.2 Mixed hyperlipidemia (principal)
CPT/HCPCS: 36415; 80053; 80061

== ENCOUNTER 2021-06-26 14:41 | Inpatient (IN) | payer MEDICARE ==
[2021-06-26] MEDS ORDERED: SODIUM CHLORIDE 0.9% 1,000 ML IV STA (15:29)
[2021-06-26 15:51] LABS: Basophils # (A) 0.1 k/uL (0-0.2); Basophils % (A) 1 %; Eosinophils # (A) 0.2 k/uL (0-0.7); Eosinophils % (A) 1 %; HCT 40.7 % (39.0-53.0); HGB 13.4 gm/dL (13.0-17.5); Lymphocytes % (A) 5 %; MCV 93.8 fL (80.0-100.0); Mean Platelet Volume 7.7; Monocytes # (A) 0.8 k/uL (0-1.0); Monocytes % (A) 4 %; Neutrophils # (A) 17.7 k/uL (1.3-7.7); Neutrophils % (A) 89 %; Platelet Count 278 k/uL (150-450); RBC 4.33 m/uL (4.30-5.90); RDW 12.9 % (11.5-15.5); WBC 19.9 k/uL (3.8-10.6)
[2021-06-26 16:07] LABS: Prothrombin Time 10.6 sec (9.0-12.0)
[2021-06-26 16:10] LABS: ALT 24 U/L (4-49); AST 23 U/L (17-59); African American GFR (CKD) >90 (>60 ml/min/1.73 sqM); Alkaline Phosphatase 74 U/L (38-126); Amylase 43 U/L (30-110); Anion Gap 11 mmol/L; Blood Urea Nitrogen 13 mg/dL (9-20); Calcium 8.9 mg/dL (8.4-10.2); Carbon Dioxide 24 mmol/L (22-30); Chloride 101 mmol/L (98-107); Glucose 224 mg/dL (74-99); Lipase 89 U/L (23-300); Non-African American GFR(CKD) 84 (>60 ml/min/1.73 sqM); Potassium 4.6 mmol/L (3.5-5.1); Sodium 136 mmol/L (137-145); Total Protein 6.8 g/dL (6.3-8.2)
[2021-06-26] MEDS ORDERED: SODIUM CHLORIDE 0.9% 1,000 ML IV ONE (16:41)
[2021-06-26 16:46] LABS: VBG PH 7.42 (7.31-7.41)
--- NOTE | 2021-06-26 17:07 | ED ---
Abdominal Pain HPI - General Chief Complaint: Abdominal Pain Stated Complaint: Abd pain Time Seen by Provider: 06/26/21 15:12 Source: patient Mode of arrival: ambulatory Limitations: no limitations - History of Present Illness Initial Comments: Patient is a 70-year-old male presenting with chief complaint of abdominal pain. Patient states that the pain has been going on for the last 3 days. It is a colicky pain mostly in the bilateral lower quadrants. Patient states that he has had no appetite, he has had one small bowel movement yesterday. Patient states that he is still passing flatulence. He denies any vomiting, admits to nausea. Denies chest pain or shortness of breath. No fever or chills. No hematochezia or melena. No dysuria, hematuria, urgency, frequency. - Related Data Home Medications Medication Instructions Recorded Confirmed Aspirin [Adult Low Dose Aspirin EC] 81 mg PO DAILY 05/15/19 06/26/21 Atorvastatin [Lipitor] 40 mg PO HS 05/15/19 06/26/21 Ezetimibe [Zetia] 10 mg PO HS 05/15/19 06/26/21 Metoprolol Tartrate [Lopressor] 100 mg PO DAILY 05/15/19 06/26/21 Nitroglycerin Sl Tabs [Nitrostat] 0.4 mg SUBLINGUAL Q5M PRN 05/15/19 06/26/21 amLODIPine BESYLATE 10 mg PO DAILY 05/15/19 06/26/21 lisinopriL [Zestril] 10 mg PO DAILY 05/15/19 06/26/21 metFORMIN HCL [Glucophage] 1,000 mg PO BID 01/12/21 06/26/21 Previous Rx's Medication Instructions Recorded Clopidogrel Bisulfate [Plavix] 75 mg PO DAILY #90 tab 12/09/20 Allergies Allergy/AdvReac Type Severity Reaction Status Date / Time No Known Allergies Allergy Verified 06/26/21 18:22 Review of Systems ROS Statement: Those systems with pertinent positive or pertinent negative responses have been documented in the HPI. ROS Other: All systems not noted in ROS Statement are negative. Past Medical History Past Medical History: Coronary Artery Disease (CAD), Diabetes Mellitus, Hyperlipidemia, Hypertension, Vascular Disorder Additional Past Medical History / Comment(s): Pain in Rt leg occ History of Any Multi-Drug Resistant Organisms: None Reported Past Surgical History: Coronary Bypass/CABG, Heart Catheterization, Heart Catheterization With Stent, Hernia Repair Additional Past Surgical History / Comment(s): Triple CABG 2006. PTCA w/ stent x1. AORTOGRAM -LEFT LEG WITH STENT -2020. Stents Lt leg x3-4 Past Anesthesia/Blood Transfusion Reactions: No Reported Reaction Date of Last Stent Placement:: JULY 2006 Past Psychological History: No Psychological Hx Reported Smoking Status: Former smoker Past Alcohol Use History: None Reported Past Drug Use History: None Reported - Past Family History Mother Family Medical History: Cancer Additional Family Medical History / Comment(s): STOMACH CANCER. General Exam Limitations: no limitations General appearance: alert, in no apparent distress Head exam: Present: atraumatic, normocephalic, normal inspection Eye exam: Present: normal appearance, EOMI. Absent: scleral icterus Neck exam: Present: normal inspection Respiratory exam: Present: normal lung sounds bilaterally. Absent: respiratory distress, wheezes, rales, rhonchi, stridor Cardiovascular Exam: Present: regular rate, normal rhythm, normal heart sounds. Absent: systolic murmur, diastolic murmur, rubs, gallop, clicks GI/Abdominal exam: Present: soft, tenderness (Bilateral lower quadrants), normal bowel sounds. Absent: distended, guarding, rebound, rigid Neurological exam: Present: alert, oriented X3, CN II-XII intact Psychiatric exam: Present: normal affect, normal mood Skin exam: Present: warm, dry, intact, normal color. Absent: rash Course Vital Signs 06/26/21 06/26/21 15:03 18:48 Temperature 97.8 F Pulse Rate 66 90 Respiratory 16 18 Rate Blood Pressure 136/65 132/78 O2 Sat by Pulse 98 98 Oximetry Medical Decision Making - Medical Decision Making Patient is a 70-year-old male presenting with chief complaint of abdominal pain. Pain is most prominent in the bilateral lower quadrants. It is a colicky cramping pain that has been occurring for the last 3 days. On examination there is tenderness on palpation, abdomen is soft and nondistended. Lab work shows WBC of 19.9. Lactic acid is elevated at 2.6. Urine shows signs of dehydration, patient states that he has not been eating or drinking due to low appetite. CT of abdomen and pelvis shows acute uncomplicated appendicitis with reactive terminal ileitis and prostatomegaly. I contacted Dr. Moreno and discussed these findings. She agreed to admit the patient, he was started on Zosyn, fluids, pain control, placed nothing by mouth after midnight. I informed the patient of the plan, he was agreeable. I discussed this case with my attending Dr. Alaniz. - Lab Data Result diagrams: 06/26/21 15:39 06/26/21 15:39 Lab Results 06/26/21 06/26/21 06/26/21 Range/Units 15:39 15:39 15:39 WBC 19.9 H (3.8-10.6) k/uL RBC 4.33 (4.30-5.90) m/uL Hgb 13.4 (13.0-17.5) gm/dL Hct 40.7 (39.0-53.0) % MCV 93.8 (80.0-100.0) fL MCH 31.0 (25.0-35.0) pg MCHC 33.0 (31.0-37.0) g/dL RDW 12.9 (11.5-15.5) % Plt Count 278 (150-450) k/uL MPV 7.7 Neutrophils % 89 % Lymphocytes % 5 % Monocytes % 4 % Eosinophils % 1 % Basophils % 1 % Neutrophils # 17.7 H (1.3-7.7) k/uL Lymphocytes # 1.0 (1.0-4.8) k/uL Monocytes # 0.8 (0-1.0) k/uL Eosinophils # 0.2 (0-0.7) k/uL Basophils # 0.1 (0-0.2) k/uL PT 10.6 (9.0-12.0) sec INR 1.0 (<1.2) APTT 21.0 L (22.0-30.0) sec VBG pH (7.31-7.41) VBG pCO2 (37-51) mmHg VBG HCO3 (24-28) mmol/L Sodium 136 L (137-145) mmol/L Potassium 4.6 (3.5-5.1) mmol/L Chloride 101 (98-107) mmol/L Carbon Dioxide 24 (22-30) mmol/L Anion Gap 11 mmol/L BUN 13 (9-20) mg/dL Creatinine 0.92 (0.66-1.25) mg/dL Est GFR (CKD-EPI)AfAm >90 (>60 ml/min/1.73 sqM) Est GFR (CKD-EPI)NonAf 84 (>60 ml/min/1.73 sqM) Glucose 224 H (74-99) mg/dL Lactic Ac Sepsis Rflx Plasma Lactic Acid Sajan (0.7-2.0) mmol/L Calcium 8.9 (8.4-10.2) mg/dL Total Bilirubin 1.0 (0.2-1.3) mg/dL AST 23 (17-59) U/L ALT 24 (4-49) U/L Alkaline Phosphatase 74 (38-126) U/L Troponin I (0.000-0.034) ng/mL Total Protein 6.8 (6.3-8.2) g/dL Albumin 4.0 (3.5-5.0) g/dL Amylase 43 (30-110) U/L Lipase 89 (23-300) U/L Urine Color Urine Appearance (Clear) Urine pH (5.0-8.0) Ur Specific [place] (1.001-1.035) Urine Protein (Negative) Urine Glucose (UA) (Negative) Urine Ketones (Negative) Urine Blood (Negative) Urine Nitrite (Negative) Urine Bilirubin (Negative) Urine Urobilinogen (<2.0) mg/dL Ur Leukocyte Esterase (Negative) 06/26/21 06/26/21 06/26/21 Range/Units 15:39 15:39 16:28 WBC (3.8-10.6) k/uL RBC (4.30-5.90) m/uL Hgb (13.0-17.5) gm/dL Hct (39.0-53.0) % MCV (80.0-100.0) fL MCH (25.0-35.0) pg MCHC (31.0-37.0) g/dL RDW (11.5-15.5) % Plt Count (150-450) k/uL MPV Neutrophils % % Lymphocytes % % Monocytes % % Eosinophils % % Basophils % % Neutrophils # (1.3-7.7) k/uL Lymphocytes # (1.0-4.8) k/uL Monocytes # (0-1.0) k/uL Eosinophils # (0-0.7) k/uL Basophils # (0-0.2) k/uL PT (9.0-12.0) sec INR (<1.2) APTT (22.0-30.0) sec VBG pH (7.31-7.41) VBG pCO2 (37-51) mmHg VBG HCO3 (24-28) mmol/L Sodium (137-145) mmol/L Potassium (3.5-5.1) mmol/L Chloride (98-107) mmol/L Carbon Dioxide (22-30) mmol/L Anion Gap mmol/L BUN (9-20) mg/dL Creatinine (0.66-1.25) mg/dL Est GFR (CKD-EPI)AfAm (>60 ml/min/1.73 sqM) Est GFR (CKD-EPI)NonAf (>60 ml/min/1.73 sqM) Glucose (74-99) mg/dL Lactic Ac Sepsis Rflx Y Plasma Lactic Acid Sajan 2.6 H* (0.7-2.0) mmol/L Calcium (8.4-10.2) mg/dL Total Bilirubin (0.2-1.3) mg/dL AST (17-59) U/L ALT (4-49) U/L Alkaline Phosphatase (38-126) U/L Troponin I <0.012 (0.000-0.034) ng/mL Total Protein (6.3-8.2) g/dL Albumin (3.5-5.0) g/dL Amylase (30-110) U/L Lipase (23-300) U/L Urine Color Urine Appearance (Clear) Urine pH (5.0-8.0) Ur Specific [place] (1.001-1.035) Urine Protein (Negative) Urine Glucose (UA) (Negative) Urine Ketones (Negative) Urine Blood (Negative) Urine Nitrite (Negative) Urine Bilirubin (Negative) Urine Urobilinogen (<2.0) mg/dL Ur Leukocyte Esterase (Negative) 06/26/21 06/26/21 Range/Units 16:31 17:37 WBC (3.8-10.6) k/uL RBC (4.30-5.90) m/uL Hgb (13.0-17.5) gm/dL Hct (39.0-53.0) % MCV (80.0-100.0) fL MCH (25.0-35.0) pg MCHC (31.0-37.0) g/dL RDW (11.5-15.5) % Plt Count (150-450) k/uL MPV Neutrophils % % Lymphocytes % % Monocytes % % Eosinophils % % Basophils % % Neutrophils # (1.3-7.7) k/uL Lymphocytes # (1.0-4.8) k/uL Monocytes # (0-1.0) k/uL Eosinophils # (0-0.7) k/uL Basophils # (0-0.2) k/uL PT (9.0-12.0) sec INR (<1.2) APTT (22.0-30.0) sec VBG pH 7.42 H (7.31-7.41) VBG pCO2 39 (37-51) mmHg VBG HCO3 25 (24-28) mmol/L Sodium (137-145) mmol/L Potassium (3.5-5.1) mmol/L Chloride (98-107) mmol/L Carbon Dioxide (22-30) mmol/L Anion Gap mmol/L BUN (9-20) mg/dL Creatinine (0.66-1.25) mg/dL Est GFR (CKD-EPI)AfAm (>60 ml/min/1.73 sqM) Est GFR (CKD-EPI)NonAf (>60 ml/min/1.73 sqM) Glucose (74-99) mg/dL Lactic Ac Sepsis Rflx Plasma Lactic Acid Sajan (0.7-2.0) mmol/L Calcium (8.4-10.2) mg/dL Total Bilirubin (0.2-1.3) mg/dL AST (17-59) U/L ALT (4-49) U/L Alkaline Phosphatase (38-126) U/L Troponin I (0.000-0.034) ng/mL Total Protein (6.3-8.2) g/dL Albumin (3.5-5.0) g/dL Amylase (30-110) U/L Lipase (23-300) U/L Urine Color Light Yellow Urine Appearance Clear (Clear) Urine pH 5.5 (5.0-8.0) Ur Specific [place] >1.050 H (1.001-1.035) Urine Protein Trace H (Negative) Urine Glucose (UA) Trace H (Negative) Urine Ketones Trace H (Negative) Urine Blood Negative (Negative) Urine Nitrite Negative (Negative) Urine Bilirubin Negative (Negative) Urine Urobilinogen <2.0 (<2.0) mg/dL Ur Leukocyte Esterase Negative (Negative) Disposition Clinical Impression: Acute appendicitis Disposition: ADMITTED IP TO THIS HOSP Condition: Fair Time of Disposition: 18:13 Decision to Admit Reason: Admit from EC Decision Date: 06/26/21 Decision Time: 18:13
--- NOTE | 2021-06-26 17:33 | CT ---
EXAMINATION TYPE: CT abdomen pelvis w con CT DLP: 1279.8 mGycm, Automated exposure control for dose reduction was used. DATE OF EXAM: 06/26/2021 5:15 PM COMPARISON: None CLINICAL INDICATION:Male, 70 years old with history of Abdominal pain; Abdominal pain and nausea. TECHNIQUE: Standard CT of the abdomen and pelvis following the administration of 100 cc of Isovue 3 00 IV contrast material. Coronal and sagittal reformats were performed. FINDINGS: LOWER CHEST: Streaky subsegmental atelectasis/scarring. Sternotomy wires are present. ABDOMEN LIVER: Diffusely hypoattenuating parenchyma. GALLBLADDER AND BILE DUCTS: Unremarkable. PANCREAS: Unremarkable. SPLEEN: Unremarkable. ADRENAL GLANDS: Unremarkable. KIDNEYS AND URETERS: No evidence of hydronephrosis or renal calculus. The ureters are unremarkable. PELVIS BLADDER: Unremarkable REPRODUCTIVE: Prostate is enlarged in size measuring 5.2 cm in transverse dimension. ABDOMEN & PELVIS STOMACH AND BOWEL: The appendix is dilated measuring up to 12 mm with surrounding fat stranding [place] es and hyperemia of the mucosa. No evidence of pneumoperitoneum or organizing fluid collection. No ev idence of bowel obstruction. PERITONEUM: No evidence of pneumoperitoneum. There is Is trace free fluid in the right lower quadrant likely reactive. VASCULATURE: No evidence of aortic aneurysm. Bilateral common iliac artery stents. Visualized stents are felt to be patent. Atherosclerosis throughout the arterial vasculature. MUSCULOSKELETAL: No acute osseous abnormalities. LYMPH NODES: No gross evidence for lymphadenopathy. SOFT TISSUE/ABDOMINAL WALL: Unremarkable IMPRESSION: 1. Acute uncomplicated appendicitis with reactive terminal ileitis. 2. Prostatomegaly correlate serum PSA.
[2021-06-26] MEDS ORDERED: MORPHINE SULFATE 4 MG/ML SYRINGE IVP STA (17:45)
[2021-06-26 18:00] LABS: Appearance,Urine Clear (Clear); Bilirubin,Urine Negative (Negative); Blood,Urine Negative (Negative); Color,Urine Light Yellow; Glucose,Urine (UA) Trace (Negative); Ketones,Urine Trace (Negative); Leukocyte Esterase,Urine Negative (Negative); Nitrite,Urine Negative (Negative); PH, Urine 5.5 (5.0-8.0); Protein,Urine Trace (Negative); Urobilinogen,Urine <2.0 mg/dL (<2.0)
[2021-06-26 18:02] LABS: Specific Gravity,Urine >1.050 (1.001-1.035)
[2021-06-26] MEDS ORDERED: MORPHINE SULFATE 4 MG/ML SYRINGE IV PRN (18:10)
[2021-06-26] MEDS ORDERED: NALOXONE 0.4 MG/ML 1 ML VIAL IV PRN (18:10)
[2021-06-26] MEDS ORDERED: PIPERACILLIN-TAZOBACTAM 3.375 GM in SODIUM CHLORIDE 0.9% 100 ML IVPB ONE (18:15)
[2021-06-26] MEDS: SODIUM CHLORIDE 0.9% 1,000 ML IV SCH (21:14)
[2021-06-26] MEDS ORDERED: NITROGLYCERIN SL TABS 0.4 MG TAB SUBLINGUAL PRN (22:06)
[2021-06-26] MEDS ORDERED: ACETAMINOPHEN IV (For NPO) 1,000 MG in EMPTY BAG 1 BAG IVPB SCH (22:10)
[2021-06-26] MEDS ORDERED: ONDANSETRON 4 MG/2 ML VIAL IVP PRN (22:11)
[2021-06-26] MEDS: ACETAMINOPHEN IV (For NPO) 1,000 MG in EMPTY BAG 1 BAG IVPB SCH (23:08)
--- NOTE | 2021-06-27 01:50 | P.HPIM ---
History of Present Illness H&P Date: 06/26/21 The patient is a 70-year-old male with a PMH of coronary artery disease, hypertension, hyperlipidemia, type II DM who presents to the emergency room with complaints of abdominal pain. The patient reports that he started having bilateral lower abdominal pain 2 or 3 days ago, which gradually worsened and then moved onto his right lower quadrant. The pain was aching and cramping in nature, 6 out of 10 of maximal intensity, intermittent, without any exacerbating or alleviating features. Patient denied diarrhea, nausea, or vomiting. Also denied fever, chills, chest pain, shortness of breath. He reported that his pain had resolved at the time of interview. In the emergency room, CT abdomen a nd pelvis revealed appendicitis reactive terminal ileitis. EKG revealed sinus rhythm at 62 bpm with a left bundle branch block. Laboratory evaluation was remarkable for WBC count of 19.9, lactic acid 2.6, glucose 224, and an unremarkable UA. Patient was admitted to the surgery service for acute a ppendicitis with medicine consult. Review of systems: Pertinent positives and negatives as discussed in HPI, a complete review of systems was performed and all other systems are negative. Physical examination: General: non toxic, no distress, appears at stated age, normal weight Derm: no unusual rashes/lesions no unusual ecchymoses, warm, dry Head: atraumatic, normocephalic, symmetric Eyes: EOMI, no lid lag, anicteric sclera, pupils equal round reactive to light ENT: Nose and ears atraumatic, no thrush, no pharyngeal erythema Neck: No thyromegaly, no cervical lymphadenopathy, trachea midline, supple Mouth: no lip lesion, mucus membranes moist Cardiovascular: S1S2 reg, no murmur, positive posterior tibial pulse bilateral, no edema, capillary refill less than 2 seconds Lungs: CTA bilateral, no rhonchi, no rales , no accessory muscle use Abdominal: soft, mild diffuse tenderness, no guarding, no appreciable organomegaly Ext: no gross muscle atrophy, muscle strength 5 out of 5 in all 4 extremities grossly, no contractures, Neuro: CN II-XI grossly intact, light touch intact all 4 extremities, finger to nose within normal limits, Psych: Alert, oriented, appropriate affect Assessment/plan Chronic conditions: Hypertension, hyperlipidemia, type II DM -Continue with home meds -Insulin sliding scale blood glucose monitoring Prostatomegaly -Check PSA Acute appendicitis -Management as per primary surgical service We appreciate this opportunity to be involved in this patient's care. We will follow the patient with you. For any further questions, please not hesitate to contact the [facility] emergency department inpatient team. Past Medical History Past Medical History: Coronary Artery Disease (CAD), Diabetes Mellitus, Hyperlipidemia, Hypertension, Vascular Disorder Additional Past Medical History / Comment(s): Pain in Rt leg occ History of Any Multi-Drug Resistant Organisms: None Reported Past Surgical History: Coronary Bypass/CABG, Heart Catheterization, Heart Catheterization With Stent, Hernia Repair Additional Past Surgical History / Comment(s): Triple CABG 2005. PTCA w/ stent x1. AORTOGRAM -LEFT LEG WITH STENT -2020. Stents Lt leg x3-4 Past Anesthesia/Blood Transfusion Reactions: No Reported Reaction Date of Last Stent Placement:: JULY 2006 Past Psychological History: No Psychological Hx Reported Smoking Status: Former smoker Past Alcohol Use History: None Reported Additional Past Alcohol Use History / Comment(s): STARTED SMOKING AT AGE 13, QUIT 1997, SMOKED 3 PDD Past Drug Use History: None Reported - Past Family History Mother Family Medical History: Cancer Additional Family Medical History / Comment(s): STOMACH CANCER. Medications and Allergies Home Medications Medication Instructions Recorded Confirmed Type Aspirin [Adult Low Dose Aspirin EC] 81 mg PO DAILY 05/15/19 06/26/21 History Atorvastatin [Lipitor] 40 mg PO HS 05/15/19 06/26/21 History Ezetimibe [Zetia] 10 mg PO HS 05/15/19 06/26/21 History Metoprolol Tartrate [Lopressor] 100 mg PO DAILY 05/15/19 06/26/21 History Nitroglycerin Sl Tabs [Nitrostat] 0.4 mg SUBLINGUAL Q5M PRN 05/15/19 06/26/21 History amLODIPine BESYLATE 10 mg PO DAILY 05/15/19 06/26/21 History lisinopriL [Zestril] 10 mg PO DAILY 05/15/19 06/26/21 History Clopidogrel Bisulfate [Plavix] 75 mg PO DAILY #90 tab 12/09/20 06/26/21 Rx metFORMIN HCL [Glucophage] 1,000 mg PO BID 01/12/21 06/26/21 History Allergies Allergy/AdvReac Type Severity Reaction Status Date / Time No Known Allergies Allergy Verified 06/26/21 18:22 Physical Exam Vitals: Vital Signs Temp Pulse Pulse Resp BP BP Pulse Ox 06/26/21 19:40 100.1 F H 77 17 135/61 94 L 06/26/21 18:48 90 18 132/78 98 06/26/21 15:03 97.8 F 66 16 136/65 98 Intake and Output 06/26/21 06/26/21 06/27/21 14:59 22:59 06:59 Other: Weight 95.254 kg Results CBC & Chem 7: 06/26/21 15:39 06/26/21 15:39 Labs: Abnormal Lab Results - Last 24 Hours (Table) 06/26/21 06/26/21 06/26/21 Range/Units 15:39 15:39 15:39 WBC 19.9 H (3.8-10.6) k/uL Neutrophils # 17.7 H (1.3-7.7) k/uL APTT 21.0 L (22.0-30.0) sec VBG pH (7.31-7.41) Sodium 136 L (137-145) mmol/L Glucose 224 H (74-99) mg/dL Plasma Lactic Acid Sajan (0.7-2.0) mmol/L Ur Specific [place] (1.001-1.035) Urine Protein (Negative) Urine Glucose (UA) (Negative) Urine Ketones (Negative) 06/26/21 06/26/21 06/26/21 Range/Units 15:39 16:31 17:37 WBC (3.8-10.6) k/uL Neutrophils # (1.3-7.7) k/uL APTT (22.0-30.0) sec VBG pH 7.42 H (7.31-7.41) Sodium (137-145) mmol/L Glucose (74-99) mg/dL Plasma Lactic Acid Sajan 2.6 H* (0.7-2.0) mmol/L Ur Specific [place] >1.050 H (1.001-1.035) Urine Protein Trace H (Negative) Urine Glucose (UA) Trace H (Negative) Urine Ketones Trace H (Negative) 06/26/21 Range/Units 19:08 WBC (3.8-10.6) k/uL Neutrophils # (1.3-7.7) k/uL APTT (22.0-30.0) sec VBG pH (7.31-7.41) Sodium (137-145) mmol/L Glucose (74-99) mg/dL Plasma Lactic Acid Sajan 2.3 H* (0.7-2.0) mmol/L Ur Specific [place] (1.001-1.035) Urine Protein (Negative) Urine Glucose (UA) (Negative) Urine Ketones (Negative) Thrombosis Risk Factor Assmnt - Choose All That Apply Any of the Below Risk Factors Present?: Yes Each Factor Represents 1 point: Obesity (BMI >25) Other Risk Factors: Yes Each Risk Factor Represents 2 Points: Age 61-74 years Other congenital or acquired thrombophilia - If yes, enter type in comment: No Thrombosis Risk Factor Assessment Total Risk Factor Score: 3 Thrombosis Risk Factor Assessment Level: Moderate Risk
[2021-06-27] MEDS: PIPERACILLIN-TAZOBACTAM 3.375 GM in SODIUM CHLORIDE 0.9% 100 ML IVPB SCH ×3 (02:22→20:56)
[2021-06-27] MEDS: ACETAMINOPHEN IV (For NPO) 1,000 MG in EMPTY BAG 1 BAG IVPB SCH ×3 (02:23→16:53)
[2021-06-27] MEDS: SODIUM CHLORIDE 0.9% 1,000 ML IV SCH ×3 (02:25→20:51)
[2021-06-27 07:34] LABS: Glucose,Whole Blood 132 mg/dL (75-99)
[2021-06-27] MEDS: INSULIN ASPART (NovoLOG) 100 UNIT/ML VIAL SQ SCH ×4 (07:38→20:59)
[2021-06-27] MEDS: FAMOTIDINE 20 MG TAB PO SCH ×2 (08:30→20:56)
[2021-06-27] MEDS: ASPIRIN 81 MG PO SCH (08:30)
[2021-06-27] MEDS: amLODIPine 10 MG TAB PO SCH (08:30)
[2021-06-27] MEDS: METOPROLOL TARTRATE 50 MG TAB PO SCH (08:33)
[2021-06-27] MEDS: HEPARIN SODIUM,PORCINE/PF 5,000 UNIT/0.5 ML SYRINGE SQ SCH ×2 (08:33→20:56)
--- NOTE | 2021-06-27 09:32 | P.GSHP ---
History of Present Illness H&P Date: 06/27/21 CHIEF COMPLAINT: Abdominal pain HISTORY OF PRESENT ILLNESS: This is a 70-year-old male who presented to the hospital with complaints of right lower quadrant abdominal pain for 3 days. He reports feeling feverish. Denies any nausea vomiting. He's had regular bowel movements. He reports increase in pain with movement. He does have a cardiac history and is on Plavix. He's had a coronary artery disease with cardiac stents. Last stent July 2006. History of CABG in 2005. Reports he's had per ipheral arterial disease with stents placed in his legs in 2020. Patient's computed tomography scan of abdomen and pelvis that showed evidence of appendicitis. He's been placed on IV antibiotics. His hospital for acute appendicitis. Abdominal surgical her history includes a left inguinal hernia repair several years ago. PAST MEDICAL HISTORY: See list. PAST SURGICAL HISTORY: See list. MEDICATIONS: See list. ALLERGIES: See list. SOCIAL HISTORY: No illicit drug use. REVIEW OF SYSTEMS: CONSTITUTIONAL: Denies fever or chills. HEENT: Denies blurred vision, vision changes, or eye pain. Denies hemoptysis ENDOCRINE: Denies heat or cold intolerance. CARDIOVASCULAR: Denies chest pain or pressure. RESPIRATORY: No shortness of breath. GASTROINTESTINAL: please refer to HPI NEURO: Denies history of seizures. PSYCH: No depression or suicidal ideation HEMATOLOGIC: Denies bleeding disorders. LYMPHATIC: The patient denies any lumps and bumps around the neck. GENITOURINARY: Denies any blood in urine or increased urinary frequency. MUSCULOSKELETAL: Denies myalgias. Denies joint swelling. Denies decreased range of motion beyond patients baseline. SKIN: Denies pruitis. Denies rash. PHYSICAL EXAM: VITAL SIGNS: Reviewed GENERAL: Well-developed in no acute distress. HEENT: No sclera icterus. Extraocular movements grossly intact. Moist buccal mucosa. Head is atraumatic, normocephalic. Hears conversational speech. No nasal drainage. NECK: Supple without lymphadenopathy. CHEST: Non-labored respirations and equal bilateral excursions. CARDIOVASCULAR: Palpable 2+ radial pulses. ABDOMEN: Soft. Nondistended. tenderness with palpation of right lower quadrant MUSCULOSKELETAL: No clubbing or cyanosis. NEUROLOGIC: No focal or lateralizing signs. Cranial nerves II through XII grossly intact. PSYCH: Appropriate affect. Alert and oriented to person, place and time. SKIN: Well perfused. Good skin turgor. LABORATORY DATA: WBC 19.9 hemoglobin 13.4 platelets 278 Sodium 136 potassium 4.6 creatinine 0.92 Lactic acid 2.6 down to 1.4 LFTs and lipase within normal range. Troponin negative. IMAGING: computed tomography scan abdomen and pelvis acute uncomplicated appendicitis with reactive terminal ileitis. Prostamegaly. ASSESSMENT: 1. Acute appendicitis 2. Reactive terminal ileitis noted on CAT scan 3. History of coronary artery disease with cardiac stent 4. History of CABG 5. History of peripheral artery disease with stents and legs PLAN: -Patient is tentatively scheduled for Robotic Appendectomy today with Dr. Al pending cardiac clearance -Cardiac consult for cardiac risk assessment -Continue antibiotics -Keep patient nothing by mouth -Continue IV fluids -Continue pain medication as needed -Hold Plavix -DVT prophylaxis subcu heparin and GI prophylaxis Pepcid Physician Train Inspector note has been reviewed by physician. Signing provider agrees with the documented findings, assessment, and plan of care. REASON FOR ADMISSION: Appendicitis. HISTORY OF PRESENT ILLNESS: The patient is a 70-year-old male with significant cardiac history including antiplatelet therapy with Plavix and prior CABG and cardiac stents who presents with over 3 day history of abdominal pain localized to right lower quadrant. Patient presented with low appetite and nausea. He also presented with temperature for fever. Since admission and start of antibiotics, patient reports some improvement of abdominal pain. Patient is admitted for appendicitis. PAST MEDICAL HISTORY: See list and reviewed PAST SURGICAL HISTORY: See list and reviewed MEDICATIONS: See list and reviewed ALLERGIES: See list and reviewed SOCIAL HISTORY: See list and reviewed FAMILY HISTORY: See list and reviewed REVIEW OF ORGAN SYSTEMS: CONSTITUTIONAL: Temperature 100.1 overnight. No recent weight loss. EYES: Denies any trouble with vision. No glasses. HEENT: No difficulties with hearing. No nosebleeds. No difficulty swallowing. RESPIRATORY: Denies pneumonia. Denies any troubles with breathing or dyspnea on exertion. CARDIOVASCULAR: Significant cardiac history for CABG including cardiac stent and antiplatelet therapy. Has hypertensive heart disease. Has ischemic cardiomyopathy. Has coronary artery disease. Has peripheral vascular occlusive disease. GASTROINTESTINAL: Denies fatty food intolerance. Denies change in bowel habits and gas bloat. GENITOURINARY: Denies any blood in urine or increased urinary frequency. NEUROLOGICAL: Denies any numbness or tingling along the distal extremities. No seizure disorders or headaches. MUSCULOSKELETAL: Has occasional back pain, stiffness or joint arthritis. SKIN: No current skin cancer. No rash. PSYCHIATRIC: Denies current depression or suicidal thoughts. ENDOCRINE: Denies current thyroid disorders. Has diabetes type 2, [id number]. HEME/LYMPHATIC: Denies any lumps and bumps around the neck. No recent deep venous thrombosis. ALLERGY/IMMUNOLOGY: No immunoglobulin therapy. No immune deficiencies. BREAST: Denies current breast lumps, pain or nipple discharge. PHYSICAL EXAM: VITALS: Reviewed CONSTITUTIONAL: Well developed and in no acute distress. EYES: Conjuctivae without sclera icterus. Extraocular movements grossly intact. HEAD, EARS, NOSE, THROAT: Moist buccal mucosa. Head is atraumatic, normocephalic. Hears conversational speech. No nasal drainage. NECK: Supple. No JV distention. No thyroidomegaly. RESPIRATORY: Non-labored respirations and equal bilateral excursions. No gross wheezes. CARDIOVASCULAR: Palpable 2+ radial pulses. ABDOMEN: Tender right lower quadrant. LYMPH: No neck lymphadenopathy. MUSCULOSKELETAL: Nail and fingers with good capillary refill. SKIN: Warm and well perfused with good skin turgor. NEUROLOGIC: Cranial nerves II through XII grossly intact. No focal or lateralizing signs. PSYCH: Appropriate affect. Alert and oriented to person, place and time. Displays appropriate insight. CLINCAL LABS: Reviewed. WBC elevated at 19.9-14.4, leukocytosis. Lactate was elevated. IMAGING: Independently reviewed. CT of the abdomen and pelvis independently reviewed demonstrate moderate inflammation along the right lower quadrant including dilated appendix consistent with appendicitis. This is my independent interpretation. EKG: Left bundle branch block. RADIOLOGY: Report reviewed. CT of the abdomen and pelvis demonstrates a large prostate, ileitis, appendicitis. RECORDS: previous old records reviewed with prior and recent aortogram with bilateral runoff for peripheral vascular occlusive disease 6 months ago. ASSESSMENT: 1. Acute appendicitis 2. Coronary artery disease 3. Peripheral vascular occlusive disease 4. Ischemic cardiomyopathy hypertensive heart disease PLAN: 1. IV fluid hydration for dehydration and elevated lactate level. 2. Robotic appendectomy described 3. IV antibiotics 4. Cardiac risk assessment due to significant cardiac history including peripheral vascular occlusive disease 5. Patient's elevated risk for complications due to pre-existing cardiac disease ADVANCE DIRECTIVE: Thank you for this kind consultation. Past Medical History Past Medical History: Coronary Artery Disease (CAD), Diabetes Mellitus, Hyperlipidemia, Hypertension, Vascular Disorder Additional Past Medical History / Comment(s): Pain in Rt leg occ History of Any Multi-Drug Resistant Organisms: None Reported Past Surgical History: Coronary Bypass/CABG, Heart Catheterization, Heart Catheterization With Stent, Hernia Repair Additional Past Surgical History / Comment(s): Triple CABG 2005. PTCA w/ stent x1. AORTOGRAM -LEFT LEG WITH STENT -2020. Stents Lt leg x3-4 Past Anesthesia/Blood Transfusion Reactions: No Reported Reaction Date of Last Stent Placement:: JULY 2006 Past Psychological History: No Psychological Hx Reported Smoking Status: Former smoker Past Alcohol Use History: None Reported Additional Past Alcohol Use History / Comment(s): STARTED SMOKING AT AGE 13, QUIT 1997, SMOKED 3 PDD Past Drug Use History: None Reported - Past Family History Mother Family Medical History: Cancer Additional Family Medical History / Comment(s): STOMACH CANCER. Medications and Allergies Home Medications Medication Instructions Recorded Confirmed Type Aspirin [Adult Low Dose Aspirin EC] 81 mg PO DAILY 05/15/19 06/26/21 History Atorvastatin [Lipitor] 40 mg PO HS 05/15/19 06/26/21 History Ezetimibe [Zetia] 10 mg PO HS 05/15/19 06/26/21 History Metoprolol Tartrate [Lopressor] 100 mg PO DAILY 05/15/19 06/26/21 History Nitroglycerin Sl Tabs [Nitrostat] 0.4 mg SUBLINGUAL Q5M PRN 05/15/19 06/26/21 History amLODIPine BESYLATE 10 mg PO DAILY 05/15/19 06/26/21 History lisinopriL [Zestril] 10 mg PO DAILY 05/15/19 06/26/21 History Clopidogrel Bisulfate [Plavix] 75 mg PO DAILY #90 tab 12/09/20 06/26/21 Rx metFORMIN HCL [Glucophage] 1,000 mg PO BID 01/12/21 06/26/21 History Allergies Allergy/AdvReac Type Severity Reaction Status Date / Time No Known Allergies Allergy Verified 06/26/21 18:22 Surgical - Exam Vital Signs Temp Pulse Resp BP Pulse Ox 97.8 F 66 16 136/65 98 06/26/21 15:03 06/26/21 15:03 06/26/21 15:03 06/26/21 15:03 06/26/21 15:03 Results - Labs 06/27/21 06:37 06/27/21 06:37 Abnormal Lab Results - Last 24 Hours (Table) 06/26/21 06/26/21 06/26/21 Range/Units 15:39 15:39 15:39 WBC 19.9 H (3.8-10.6) k/uL Neutrophils # 17.7 H (1.3-7.7) k/uL APTT 21.0 L (22.0-30.0) sec VBG pH (7.31-7.41) Sodium 136 L (137-145) mmol/L Glucose 224 H (74-99) mg/dL POC Glucose (mg/dL) (75-99) mg/dL Plasma Lactic Acid Sajan (0.7-2.0) mmol/L Ur Specific [place] (1.001-1.035) Urine Protein (Negative) Urine Glucose (UA) (Negative) Urine Ketones (Negative) 06/26/21 06/26/21 06/26/21 Range/Units 15:39 16:31 17:37 WBC (3.8-10.6) k/uL Neutrophils # (1.3-7.7) k/uL APTT (22.0-30.0) sec VBG pH 7.42 H (7.31-7.41) Sodium (137-145) mmol/L Glucose (74-99) mg/dL POC Glucose (mg/dL) (75-99) mg/dL Plasma Lactic Acid Sajan 2.6 H* (0.7-2.0) mmol/L Ur Specific [place] >1.050 H (1.001-1.035) Urine Protein Trace H (Negative) Urine Glucose (UA) Trace H (Negative) Urine Ketones Trace H (Negative) 06/26/21 06/27/21 Range/Units 19:08 07:32 WBC (3.8-10.6) k/uL Neutrophils # (1.3-7.7) k/uL APTT (22.0-30.0) sec VBG pH (7.31-7.41) Sodium (137-145) mmol/L Glucose (74-99) mg/dL POC Glucose (mg/dL) 132 H (75-99) mg/dL Plasma Lactic Acid Sajan 2.3 H* (0.7-2.0) mmol/L Ur Specific [place] (1.001-1.035) Urine Protein (Negative) Urine Glucose (UA) (Negative) Urine Ketones (Negative) Diabetes panel 06/26/21 Range/Units 15:39 Sodium 136 L (137-145) mmol/L Potassium 4.6 (3.5-5.1) mmol/L Chloride 101 (98-107) mmol/L Carbon Dioxide 24 (22-30) mmol/L BUN 13 (9-20) mg/dL Creatinine 0.92 (0.66-1.25) mg/dL Glucose 224 H (74-99) mg/dL Calcium 8.9 (8.4-10.2) mg/dL AST 23 (17-59) U/L ALT 24 (4-49) U/L Alkaline Phosphatase 74 (38-126) U/L Total Protein 6.8 (6.3-8.2) g/dL Albumin 4.0 (3.5-5.0) g/dL Calcium panel 06/26/21 Range/Units 15:39 Calcium 8.9 (8.4-10.2) mg/dL Albumin 4.0 (3.5-5.0) g/dL Pituitary panel 06/26/21 Range/Units 15:39 Sodium 136 L (137-145) mmol/L Potassium 4.6 (3.5-5.1) mmol/L Chloride 101 (98-107) mmol/L Carbon Dioxide 24 (22-30) mmol/L BUN 13 (9-20) mg/dL Creatinine 0.92 (0.66-1.25) mg/dL Glucose 224 H (74-99) mg/dL Calcium 8.9 (8.4-10.2) mg/dL Adrenal panel 06/26/21 Range/Units 15:39 Sodium 136 L (137-145) mmol/L Potassium 4.6 (3.5-5.1) mmol/L Chloride 101 (98-107) mmol/L Carbon Dioxide 24 (22-30) mmol/L BUN 13 (9-20) mg/dL Creatinine 0.92 (0.66-1.25) mg/dL Glucose 224 H (74-99) mg/dL Calcium 8.9 (8.4-10.2) mg/dL Total Bilirubin 1.0 (0.2-1.3) mg/dL AST 23 (17-59) U/L ALT 24 (4-49) U/L Alkaline Phosphatase 74 (38-126) U/L Total Protein 6.8 (6.3-8.2) g/dL Albumin 4.0 (3.5-5.0) g/dL
[2021-06-27 10:43] LABS: Basophils # (A) 0.03 X 10*3/uL (0.00-0.10); Basophils % (A) 0.2 %; Eosinophils # (A) 0.02 X 10*3/uL (0.04-0.35); Eosinophils % (A) 0.1 %; HCT 35.2 % (39.6-50.0); HGB 11.3 g/dL (13.0-17.0); Immature Grans, Automated 0.6 %; Lymphocytes # (A) 1.15 X 10*3/uL (0.90-5.00); MCHC 32.1 g/dL (32.0-37.0); MCV 96.4 fL (80.0-97.0); Mean Platelet Volume 10.9 fL (9.5-12.2); Monocytes # (A) 0.78 X 10*3/uL (0.20-1.00); Monocytes % (A) 5.4 %; NRBC Per 100 WBC 0 /100 WBCS (0.0-0.0); Neutrophils # (A) 12.33 X 10*3/uL (1.80-7.70); Neutrophils % (A) 85.7 %; Platelet Count 216 X 10*3/uL (140-440); RBC 3.65 X 10*6/uL (4.40-5.60); RDW 13.4 % (11.5-14.5); WBC 14.39 X 10*3/uL (4.50-10.00)
[2021-06-27 10:59] LABS: African American GFR (CKD) 78.4 (60.0-200.0); Albumin 3.2 g/dL (3.8-4.9); Albumin/Globulin Ratio 1.52 (1.60-3.17); Anion Gap 13.4 mmol/L (10.00-18.00); BUN/Creat Ratio 12.91 Ratio (12.00-20.00); Blood Urea Nitrogen 14.2 mg/dL (9.0-27.0); Calcium 7.9 mg/dL (8.7-10.3); Carbon Dioxide 21.6 mmol/L (20.0-27.5); Globulin 2.1 g/dL (1.6-3.3); Non-African American GFR(CKD) 67.7 (60.0-200.0); Potassium 3.8 mmol/L (3.5-5.5); Total Bilirubin 0.8 mg/dL (0.30-1.20); Total Protein 5.3 g/dL (6.2-8.2)
[2021-06-27] MEDS ORDERED: ATORVASTATIN 40 MG TAB PO STA (11:01)
--- NOTE | 2021-06-27 11:09 | P.CRDCN ---
History of Present Illness History of present illness: HISTORY OF PRESENTING ILLNESS This is a pleasant 70-year-old male past medical history significant for coronary artery disease status post CABG ([id number]-OM1, VG-PDA) in 2005, left subclavian bypass 05/12/2011, PCI to the distal circumflex 2006, peripheral vascular disease status post stenting left exerternal iliac in 2019, stenting left common iliac, stent right internal iliac, right and left common iliac in 12/2020, arthrectomy of the right SFA and balloon angioplasty of right SFA 1 03/2020, hypertension, diabetes, dyslipidemia, former tobacco use. He follows in the office with Dr. Sena. We have been asked to see in consultation for cardiac risk assessment. Patient presents to emergency department with 3 days of right lower quadrant abdominal pain and nausea. He noticed his pain was not improving and came to the ER for further evaluation. Found to have acute appendicitis. Surgery asking for cardiac clearance for surgery. Patient denies any chest pain, shortness of breath, lightheadedness, dizziness, syncope or near syncope. Denies symptoms of orthopnea or PND. DIAGNOSTICS -EKG reveals sinus rhythm, heart rate 62, left bundle branch block, T wave inversions in lead III and aVF. -Most recent stress test 09/09/2020 Lexiscan revealed normal myocardial perfusion imaging with a fixed inferobasal defect and normal gated SPECT images suggest of soft tissue attenuation. No evidence of stress-induced ischemia -Most recent echocardiogram in the office 09/2020 with EF 50%, grade 2 diastolic dysfunction, mild left ventricular hypertrophy, mild to moderate mitral regur gitation, mild to moderate tricuspid regurgitation -CT abdomen and pelvis revealed acute uncomplicated appendicitis with reactive terminal ileitis. -Laboratory reviewed, WBC 19.9, lactate 2.6, repeat 1.4, sodium 136, potassium 4.6, BUN 13, serum crit 0.9, troponin negative -Current home medications include metformin, lisinopril 10 mg daily, amlodipine 10 mg daily, metoprolol titrate 100 mg daily, Zetia, Plavix 75 mg daily, atorvastatin 40 mg nightly, aspirin 81 mg daily REVIEW OF SYSTEMS At the time of my exam: CONSTITUTIONAL: Denies fever or chills. CARDIOVASCULAR: Denies chest pain, shortness of breath, orthopnea, PND or palpitations. RESPIRATORY: Denies cough. GASTROINTESTINAL: + abdominal pain,Denies diarrhea, constipation, +nausea Denies vomiting. MUSCULOSKELETAL: Denies myalgias. NEUROLOGIC: Denies numbness, tingling, headache or weakness. ENDOCRINE: Denies fatigue, weight change, polydipsia or polyurina. GENITOURINARY: Denies burning, hematuria or urgency with micturation. HEMATOLOGIC: Denies history of anemia or bleeding. PHYSICAL EXAMINATION Blood pressure 129/70, heart rate 76, temperature 100.1F, repeat 98F, 96% on room air CONSTITUTIONAL: No apparent distress. HEENT: Head is normocephalic. Pupils are equal, round. Sclerae anicteric. Mucous membranes of the mouth are moist. No JVD. No carotid bruit. CHEST EXAMINATION: Lungs are clear to auscultation. No chest wall tenderness is noted on palpation or with deep breathing. HEART EXAMINATION: Regular rate and rhythm. S1, S2 heard. Systolic ejection murmur at apex, no gallops or rub. ABDOMEN: Soft, nontender. Positive bowel sounds. EXTREMITIES: No lower extremity edema and no calf tenderness. NEUROLOGIC EXAMINATION: Patient is awake, alert and oriented x3. ASSESSMENT Acute appendicitis Coronary artery disease status post CABG ([id number]-OP-OM1, VG-PDA) in 2005, left subclavian bypass 05/12/2011, PCI to the distal circumflex 2006 Peripheral vascular disease status post previous stenting left exerternal iliac in 2019, stenting left common iliac, stent right internal iliac, right and left common iliac in 12/2020, arthrectomy of the right SFA and balloon angioplasty of right SFA 01/2021 Hypertension Type 2 Diabetes Dyslipidemia Former tobacco use PLAN -Patient is at adequate risk for surgery, he has the following risk factors of history of ischemic heart disease, age, peripheral vascular disease. Patient is hemodynamically stable. No chest pain or shortness of breath. Patient is able to perform >4 METs levels of activity and does not have any acute cardiac conditions. There are no absolute contraindications to undergo surgery at this time. Please reach out with any further questions or concerns. -Please resume all home cardiac medications. Nurse practitioner note has been reviewed by physician. Signing provider agrees with the documented findings, assessment, and plan of care. Past Medical History Past Medical History: Coronary Artery Disease (CAD), Diabetes Mellitus, Hyperlipidemia, Hypertension, Vascular Disorder Additional Past Medical History / Comment(s): Pain in Rt leg occ History of Any Multi-Drug Resistant Organisms: None Reported Past Surgical History: Coronary Bypass/CABG, Heart Catheterization, Heart Catheterization With Stent, Hernia Repair Additional Past Surgical History / Comment(s): Triple CABG 2005. PTCA w/ stent x1. AORTOGRAM -LEFT LEG WITH STENT -2020. Stents Lt leg x3-4 Past Anesthesia/Blood Transfusion Reactions: No Reported Reaction Date of Last Stent Placement:: JULY 2006 Past Psychological History: No Psychological Hx Reported Smoking Status: Former smoker Past Alcohol Use History: None Reported Additional Past Alcohol Use History / Comment(s): STARTED SMOKING AT AGE 13, QUIT 1997, SMOKED 3 PDD Past Drug Use History: None Reported - Past Family History Mother Family Medical History: Cancer Additional Family Medical History / Comment(s): STOMACH CANCER. Medications and Allergies Home Medications Medication Instructions Recorded Confirmed Type Aspirin [Adult Low Dose Aspirin EC] 81 mg PO DAILY 05/15/19 06/26/21 History Atorvastatin [Lipitor] 40 mg PO HS 05/15/19 06/26/21 History Ezetimibe [Zetia] 10 mg PO HS 05/15/19 06/26/21 History Metoprolol Tartrate [Lopressor] 100 mg PO DAILY 05/15/19 06/26/21 History Nitroglycerin Sl Tabs [Nitrostat] 0.4 mg SUBLINGUAL Q5M PRN 05/15/19 06/26/21 History amLODIPine BESYLATE 10 mg PO DAILY 05/15/19 06/26/21 History lisinopriL [Zestril] 10 mg PO DAILY 05/15/19 06/26/21 History Clopidogrel Bisulfate [Plavix] 75 mg PO DAILY #90 tab 12/09/20 06/26/21 Rx metFORMIN HCL [Glucophage] 1,000 mg PO BID 01/12/21 06/26/21 History Allergies Allergy/AdvReac Type Severity Reaction Status Date / Time No Known Allergies Allergy Verified 06/26/21 18:22 Physical Exam Vitals: Vital Signs Temp Pulse Pulse Resp BP BP Pulse Ox 06/27/21 07:00 98.0 F 76 20 129/70 96 06/27/21 01:48 98.3 F 87 17 98/47 93 L 06/26/21 19:40 100.1 F H 77 17 135/61 94 L 06/26/21 18:48 90 18 132/78 98 05/22/22 15:03 97.8 F 66 16 136/65 98 Intake and Output 06/26/21 06/27/21 06/27/21 22:59 06:59 14:59 Other: # Voids 1 1 Weight 95.254 kg Results 06/27/21 06:37 06/27/21 06:37 Cardiac Enzymes 06/26/21 06/26/21 Range/Units 15:39 15:39 AST 23 (17-59) U/L Troponin I <0.012 (0.000-0.034) ng/mL Coagulation 06/26/21 Range/Units 15:39 PT 10.6 (9.0-12.0) sec APTT 21.0 L (22.0-30.0) sec CBC 06/26/21 Range/Units 15:39 WBC 19.9 H (3.8-10.6) k/uL RBC 4.33 (4.30-5.90) m/uL Hgb 13.4 (13.0-17.5) gm/dL Hct 40.7 (39.0-53.0) % Plt Count 278 (150-450) k/uL Comprehensive Metabolic Panel 06/26/21 Range/Units 15:39 Sodium 136 L (137-145) mmol/L Potassium 4.6 (3.5-5.1) mmol/L Chloride 101 (98-107) mmol/L Carbon Dioxide 24 (22-30) mmol/L BUN 13 (9-20) mg/dL Creatinine 0.92 (0.66-1.25) mg/dL Glucose 224 H (74-99) mg/dL Calcium 8.9 (8.4-10.2) mg/dL AST 23 (17-59) U/L ALT 24 (4-49) U/L Alkaline Phosphatase 74 (38-126) U/L Total Protein 6.8 (6.3-8.2) g/dL Albumin 4.0 (3.5-5.0) g/dL Current Medications Generic Name Dose Route Start Last Admin Trade Name Freq PRN Reason Stop Dose Admin Amlodipine Besylate 10 mg 06/27/21 09:00 06/27/21 08:30 Amlodipine 10 Mg Tab PO Not Given DAILY [facility] Aspirin 81 mg 06/27/21 09:00 06/27/21 08:30 Aspirin 81 Mg PO Not Given DAILY [facility] Ezetimibe 10 mg 06/27/21 21:00 Ezetimibe 10 Mg Tab PO HS [facility] Famotidine 20 mg 06/27/21 09:00 06/27/21 08:30 Famotidine 20 Mg Tab PO Not Given BID [facility] Heparin Sodium (Porcine) 5,000 unit 06/27/21 09:00 06/27/21 08:33 Heparin Sodium,Porcine/Pf 5,000 Unit/0.5 Ml Syringe SQ 5,000 unit Q12HR [facility] Administration Sodium Chloride 1,000 mls @ 130 mls/hr 06/26/21 18:00 06/27/21 08:33 Saline 0.9% IV 130 mls/hr .[id number] [facility] Administration Piperacillin Sod/Tazobactam 100 mls @ 25 mls/hr 06/27/21 04:00 06/27/21 02:22 Sod 3.375 gm/ Sodium Chloride IVPB 25 mls/hr Q8H [facility] Administration Protocol Acetaminophen 1,000 mg/ IV 100 mls @ 400 mls/hr 06/26/21 22:30 06/27/21 02:23 Solution IVPB 06/27/21 16:44 400 mls/hr Q6H [facility] Administration Insulin Aspart 0 unit 06/27/21 07:30 06/27/21 07:38 Insulin Aspart (Novolog) 100 Unit/Ml Vial SQ Not Given ACHS [facility] Protocol Metoprolol Tartrate 100 mg 06/27/21 09:00 06/27/21 08:33 Metoprolol Tartrate 50 Mg Tab PO 100 mg DAILY [facility] Administration Morphine Sulfate 4 mg 06/26/21 18:10 Morphine Sulfate 4 Mg/Ml Syringe IV Q4HR PRN Severe Pain Naloxone HCl 0.2 mg 06/26/21 18:10 Naloxone 0.4 Mg/Ml 1 Ml Vial IV Q2M PRN Opioid Reversal Nitroglycerin 0.4 mg 06/26/21 22:06 Nitroglycerin Sl Tabs 0.4 Mg Tab SUBLINGUAL Q5M PRN Chest Pain Ondansetron HCl 4 mg 06/26/21 22:11 Ondansetron 4 Mg/2 Ml Vial IVP Q6HR PRN Nausea And Vomiting Intake and Output 05/22/22 05/23/22 05/23/22 22:59 06:59 14:59 Other: # Voids 1 1 Weight 95.254 kg 06/26/21 15:39 06/26/21 15:39
[2021-06-27 12:07] LABS: Glucose,Whole Blood 159 mg/dL (75-99)
[2021-06-27] MEDS ORDERED: IV FLUID CONTINUATION 100 ML IV ONE (12:35)
--- NOTE | 2021-06-27 13:32 | P.PN ---
Subjective Progress Note Date: 06/27/21 (delayed charting seen at 0845) Principal diagnosis: abdominal pain Patient is a 70-year-old male for history of coronary artery disease, hypertension, dyslipidemia, diabetes mellitus type 2 presented to the emergency department complaining of abdominal pain. In the ER he was only found to have appendicitis with reactive terminal ileitis. He was admitted to general surgery to consult for medical management. Patient seen and examined at bedside. He continues to have left quadrant pain. He denies any nausea, vomiting, diarrhea at this time. He is independent in all of his IADLs and ADLs. He has not had any chest pain, syncopal episodes, or shortness of breath. He is easily able to cut his grass and outdoor activities. General: General: non toxic, no distress, appears at stated age Derm: warm, dry Head: atraumatic, normocephalic, symmetric Eyes: EOMI, no lid lag, anicteric sclera Mouth: no lip lesion, mucus membranes dry Cardiovascular: S1S2 reg, no murmur, positive posterior tibial pulse bilateral, Lungs: CTA bilateral, no rhonchi, no rales , no accessory muscle use Abdominal: soft, +tender to palpation RLQ, no guarding, no appreciable organomegaly Ext: no gross muscle atrophy, no edema, no contractures Neuro: CN II-XI grossly intact, no focal neuro deficits Psych: Alert, oriented, appropriate affect , no distress, appears at stated age Assessment/plan: Acute appendicitis - Operative risk stratification: With NSQIP score for laparoscopic appendectomy patient is above average risk for cardiac complications at 0.2%. Risks reviewed with patient and are acceptable. Dno further testing prior to OR. Patient is medically optimized to proceed with surgery HTN CAD s/p CABG and stents - lisinopril, amlodipine, lopressor, zetia, plavix on hold for surgery, lipitor DM 2 - hold metformin - SSI - follow BS - check A1C Thank you for allowing us to participate in the care of this pleasant patient. Do not hesitate to contact us with questions. Someone can be reached from the [facility] hospitalist group all hours of the day at [phone] or via perfect serve. Objective - Vital Signs Vital signs: Vital Signs Temp 98.0 F 06/27/21 07:00 Pulse 76 06/27/21 07:00 Resp 20 06/27/21 07:00 BP 129/70 06/27/21 07:00 Pulse Ox 96 06/27/21 07:00 FiO2 Intake & Output 06/26/21 06/27/21 06/27/21 18:59 06:59 18:59 Weight 95.254 kg Other: # Voids 1 - Labs CBC & Chem 7: 06/27/21 06:37 06/27/21 06:37 Labs: Abnormal Lab Results - Last 24 Hours (Table) 06/26/21 06/26/21 06/26/21 Range/Units 15:39 15:39 15:39 WBC 19.9 H (3.8-10.6) k/uL RBC (4.40-5.60) X 10*6/uL Hgb (13.0-17.0) g/dL Hct (39.6-50.0) % Immature Gran # (0.00-0.04) X 10*3/uL Neutrophils # 17.7 H (1.3-7.7) k/uL Eosinophils # (0.04-0.35) X 10*3/uL APTT 21.0 L (22.0-30.0) sec VBG pH (7.31-7.41) Sodium 136 L (137-145) mmol/L Glucose 224 H (74-99) mg/dL POC Glucose (mg/dL) (75-99) mg/dL Plasma Lactic Acid Sajan (0.7-2.0) mmol/L Calcium (8.7-10.3) mg/dL Total Protein (6.2-8.2) g/dL Albumin (3.8-4.9) g/dL Albumin/Globulin Ratio (1.60-3.17) g/dL Ur Specific [place] (1.001-1.035) Urine Protein (Negative) Urine Glucose (UA) (Negative) Urine Ketones (Negative) 06/26/21 06/26/21 06/26/21 Range/Units 15:39 16:31 17:37 WBC (3.8-10.6) k/uL RBC (4.40-5.60) X 10*6/uL Hgb (13.0-17.0) g/dL Hct (39.6-50.0) % Immature Gran # (0.00-0.04) X 10*3/uL Neutrophils # (1.3-7.7) k/uL Eosinophils # (0.04-0.35) X 10*3/uL APTT (22.0-30.0) sec VBG pH 7.42 H (7.31-7.41) Sodium (137-145) mmol/L Glucose (74-99) mg/dL POC Glucose (mg/dL) (75-99) mg/dL Plasma Lactic Acid Sajan 2.6 H* (0.7-2.0) mmol/L Calcium (8.7-10.3) mg/dL Total Protein (6.2-8.2) g/dL Albumin (3.8-4.9) g/dL Albumin/Globulin Ratio (1.60-3.17) g/dL Ur Specific [place] >1.050 H (1.001-1.035) Urine Protein Trace H (Negative) Urine Glucose (UA) Trace H (Negative) Urine Ketones Trace H (Negative) 06/26/21 06/27/21 06/27/21 Range/Units 19:08 06:37 06:37 WBC 14.39 H (3.8-10.6) k/uL RBC 3.65 L (4.40-5.60) X 10*6/uL Hgb 11.3 L (13.0-17.0) g/dL Hct 35.2 L (39.6-50.0) % Immature Gran # 0.08 H (0.00-0.04) X 10*3/uL Neutrophils # 12.33 H (1.3-7.7) k/uL Eosinophils # 0.02 L (0.04-0.35) X 10*3/uL APTT (22.0-30.0) sec VBG pH (7.31-7.41) Sodium (137-145) mmol/L Glucose 144 H (74-99) mg/dL POC Glucose (mg/dL) (75-99) mg/dL Plasma Lactic Acid Sajan 2.3 H* (0.7-2.0) mmol/L Calcium 7.9 L (8.7-10.3) mg/dL Total Protein 5.3 L (6.2-8.2) g/dL Albumin 3.2 L (3.8-4.9) g/dL Albumin/Globulin Ratio 1.52 L (1.60-3.17) g/dL Ur Specific [place] (1.001-1.035) Urine Protein (Negative) Urine Glucose (UA) (Negative) Urine Ketones (Negative) 06/27/21 06/27/21 Range/Units 07:32 12:05 WBC (3.8-10.6) k/uL RBC (4.40-5.60) X 10*6/uL Hgb (13.0-17.0) g/dL Hct (39.6-50.0) % Immature Gran # (0.00-0.04) X 10*3/uL Neutrophils # (1.3-7.7) k/uL Eosinophils # (0.04-0.35) X 10*3/uL APTT (22.0-30.0) sec VBG pH (7.31-7.41) Sodium (137-145) mmol/L Glucose (74-99) mg/dL POC Glucose (mg/dL) 132 H 159 H (75-99) mg/dL Plasma Lactic Acid Sajan (0.7-2.0) mmol/L Calcium (8.7-10.3) mg/dL Total Protein (6.2-8.2) g/dL Albumin (3.8-4.9) g/dL Albumin/Globulin Ratio (1.60-3.17) g/dL Ur Specific [place] (1.001-1.035) Urine Protein (Negative) Urine Glucose (UA) (Negative) Urine Ketones (Negative)
[2021-06-27] MEDS ORDERED: LACTATED RINGERS 1,000 ML IV ONE ×2 (17:03→19:01)
[2021-06-27 17:12] LABS: Glucose,Whole Blood 116 mg/dL (75-99)
[2021-06-27] MEDS ORDERED: ONDANSETRON 4 MG/2 ML VIAL IVP ONE (17:19)
[2021-06-27] MEDS ORDERED: DEXAMETHASONE SOD PHOSPHATE 4 MG/ML 1 ML VIAL IV ONE (17:20)
[2021-06-27] MEDS ORDERED: NEOSTIGMINE 1 MG/ML 10 ML VIAL ONE (17:45)
[2021-06-27] MEDS ORDERED: fentaNYL (PF) 50 MCG/ML 2 ML AMP ONE (17:45)
[2021-06-27] MEDS ORDERED: LIDOCAINE 2% INJ 20 MG/ML (2 ML VIAL) ONE (17:45)
[2021-06-27] MEDS ORDERED: SUCCINYLCHOLINE CHLORIDE 100 MG/5 ML SYR IV ONE (17:45)
[2021-06-27] MEDS ORDERED: GLYCOPYRROLATE 0.2 MG/ML 2 ML VIAL ONE (17:45)
[2021-06-27] MEDS ORDERED: KETOROLAC 15 MG/ML 1 ML VIAL ONE (17:45)
[2021-06-27] MEDS ORDERED: HYDROmorphone (PF) 1 MG/ML ONE (17:45)
[2021-06-27] MEDS ORDERED: PROPOFOL 10 MG/ML 20 ML VIAL IV ONE (17:45)
[2021-06-27] MEDS ORDERED: MIDAZOLAM 2 MG/2 ML VIAL ONE (17:45)
[2021-06-27] MEDS ORDERED: ROCURONIUM 10 MG/ML (5 ML VIAL) IV ONE (17:45)
[2021-06-27] MEDS ORDERED: LIDOCAINE 4% LTA KIT (4 ML) TOPICAL ONE (17:45)
[2021-06-27] MEDS ORDERED: LIDOCAINE 1%-EPI 1:100,000 20 ML VIAL SQ ONE (17:58)
[2021-06-27] MEDS ORDERED: ALBUTEROL NEBULIZED 2.5 MG/3 ML INHALATION ONE (19:26)
--- NOTE | 2021-06-27 19:46 | P.OP ---
Date of Procedure: 06/27/21 Description of Procedure: SURGEON: KASHIF MORAES MD Preoperative Diagnosis: 1. Acute appendicitis 2. Coronary artery disease with history of stent 3. Peripheral vascular occlusive disease 4. Hypertensive heart disease 5. Ischemic heart disease 6. Obesity due to excess calories, BMI 30.1 7. Diabetes type 2, [id number] 8. Lactic acidosis due to dehydration 9. Sepsis Postoperative Diagnosis: 1. Gangrenous ruptured appendicitis 2. Coronary artery disease with history of stent 3. Peripheral vascular occlusive disease 4. Hypertensive heart disease 5. Ischemic heart disease 6. Obesity due to excess calories, BMI 30.1 7. Diabetes type 2, [id number] 8. Lactic acidosis due to dehydration 9. Sepsis Procedure(s) Performed: 1. Robotic-assisted daVinci Xi laparoscopic lysis of adhesions over 60% of the case 2. Robotic-assisted daVinci Xi laparoscopic appendectomy with drainage of periappendiceal abscess 3. Placement of DANIELITO drain #19 right lower quadrant/pelvis 4. Peritoneal lavage 1000 mL normal saline Anesthesia: GETA, local Estimated Blood Loss (ml): 10 Pathology: other (appendix, aerobic and anerobic culture of peritoneal fluid from peritonitis) Condition: stable Disposition: floor Operative Findings: 1. Localized abscess over 10-mL drained right lower quadrant 2. Gangrenous ruptured purulent appendicitis at tip of appendix 3. Abdomen irrigated with 1000-mL normal saline 4. DANIELITO drain placed at right lower quadrant of abscess pocket drained 5. Staple line hemostatic INDICATIONS: The patient is a 70-year-old male who presents with acute appendicitis including fevers, lactic acidosis consistent with sepsis. Surgical intervention was described in detail. Patient requested robotic-assisted technique. Benefits and risks, including infection, open surgery, and possibility for additional surgery was discussed at length. Informed consent was obtained. All questions of the patient and family were answered. DESCRIPTION: The patient was transferred to the operating room and placed in supine position. The patient had previously voided. The abdomen was then prepped and draped in standard sterile fashion as Ioban was placed along the abdomen to minimize any contamination of skin floor. After a timeout protocol was performed, attention was then brought to the left upper quadrant whereby a 0 degree 5 mm laparoscopic trocar entry was performed. The abdominal cavity was entered and insufflated to 15 mmHg pressure, which was tolerated well. Diagnostic laparoscopy demonstrated no injury to bowel, viscera or mesentery. Adhesions were confirmed of the right lower quadrant of omentum, small bowel to the abdominal wall. Localized abscess was found. Next a robotic 12-mm trocar was placed along the left upper quadrant after exchanging the 5 mm trocar. A 8 mm port was placed along the left lower quadrant and another 8-mm port left lateral abdominal wall. Ports were placed 10 cm apart from each other including 15-20 cm away from the target anatomy of the right pelvis. The patient was then placed in Trendelenburg position, at least 7 and right side up at least 7. The robotic da Benson XI system was primed and docked from the left side of the patient. Using atraumatic graspers and vessel sealer, the robotic system was docked and primed as described. Instruments were interchanged by the learning support assistant including graspers, robotic stapler and vessel sealer. Next, attention was brought to identify the cecum. A systematic view within the abdominal cavity was started with the small bowel which was remarkable for localized fluid collection of the right pelvis. The appendix was ruptured at the tip with moderate dissection performed. The abscess of 10-mL was aspirated from the abdomen. Lysis of adhesions over 60% of the case was used to dissect the appendix from surrounding tissues including along the base of the cecum. A 45 mm blue robotic staple loads were fired along the base of the appendix. The staple line was hemostatic and viable. Hemostasis was checked prior to undocking the robot. The abdomen was irrigated with 1000 mL normal saline to the aspirant was clear. The robot was undocked. I re-scrubbed into the case. A round #19 drain was placed via the left lower quadrant port and positioned at the right lower quadrant and pelvis. A drain stitch 2-0 nylon was placed with the bulb attached separately. The specimen was removed from the abdominal cavity with an Endo Catch bag through the 12 mm trocar at the left upper quadrant. All instruments and pneumoperitoneum were evacuated from the abdominal cavity. Local anesthetic was infiltrated to all wounds for postop analgesia. All incisions were also cleansed with diluted hydrogen peroxide. An Optifoam surgical dressing was placed over all port sites including drain site. The patient had tolerated the procedure well. The patient was extubated successfully. The patient was transferred to the postanesthesia care unit in stable condition. Intraoperative findings were discussed with patient's family which includes inpatient hospitalization for IV antibiotics for perforated appendicitis.
[2021-06-27 20:34] LABS: Glucose,Whole Blood 190 mg/dL (75-99)
[2021-06-27] MEDS: EZETIMIBE 10 MG TAB PO SCH (20:56)
[2021-06-27] MEDS ORDERED: ATORVASTATIN 40 MG TAB PO SCH (21:00)
[2021-06-28] MEDS: SODIUM CHLORIDE 0.9% 1,000 ML IV SCH ×3 (02:14→14:08)
[2021-06-28] MEDS: PIPERACILLIN-TAZOBACTAM 3.375 GM in SODIUM CHLORIDE 0.9% 100 ML IVPB SCH ×3 (05:37→20:22)
[2021-06-28 07:33] LABS: Glucose,Whole Blood 199 mg/dL (75-99)
[2021-06-28] MEDS: INSULIN ASPART (NovoLOG) 100 UNIT/ML VIAL SQ SCH ×4 (07:41→20:27)
[2021-06-28] MEDS: METOPROLOL TARTRATE 50 MG TAB PO SCH (08:25)
[2021-06-28] MEDS: FAMOTIDINE 20 MG TAB PO SCH ×2 (08:25→20:21)
[2021-06-28] MEDS: ASPIRIN 81 MG PO SCH (08:25)
[2021-06-28] MEDS: lisinopriL 10 MG TAB PO SCH (08:26)
[2021-06-28] MEDS: amLODIPine 10 MG TAB PO SCH (08:26)
[2021-06-28] MEDS: HEPARIN SODIUM,PORCINE/PF 5,000 UNIT/0.5 ML SYRINGE SQ SCH ×2 (08:26→20:22)
[2021-06-28] MEDS ORDERED: FUROSEMIDE 10 MG/ML 4 ML VIAL IV STA (08:54)
[2021-06-28] MEDS: TAMSULOSIN 0.4 MG CAP.ER.24H PO SCH (09:26)
[2021-06-28 09:29] LABS: Basophils # (A) 0.01 X 10*3/uL (0.00-0.10); Basophils % (A) 0.1 %; Eosinophils # (A) 0 X 10*3/uL (0.04-0.35); Eosinophils % (A) 0 %; HCT 32.9 % (39.6-50.0); HGB 10.9 g/dL (13.0-17.0); Immature Grans, Automated 0.5 %; Lymphocytes # (A) 0.43 X 10*3/uL (0.90-5.00); Lymphocytes % (A) 3.3 %; MCHC 33.1 g/dL (32.0-37.0); MCV 93.5 fL (80.0-97.0); Mean Platelet Volume 11.4 fL (9.5-12.2); Monocytes # (A) 0.37 X 10*3/uL (0.20-1.00); Monocytes % (A) 2.9 %; NRBC Per 100 WBC 0 /100 WBCS (0.0-0.0); Neutrophils # (A) 11.96 X 10*3/uL (1.80-7.70); Neutrophils % (A) 93.2 %; Platelet Count 225 X 10*3/uL (140-440); RBC 3.52 X 10*6/uL (4.40-5.60); RDW 13.2 % (11.5-14.5); WBC 12.84 X 10*3/uL (4.50-10.00)
--- NOTE | 2021-06-28 09:29 | P.PN ---
Subjective Progress Note Date: 06/28/21 CHIEF COMPLAINT: Appendicitis with sepsis HISTORY OF PRESENT ILLNESS: The patient is a 70-year-old male who presented with ruptured appendicitis and sepsis. Her reports appropriate right lower quadrant pain. He is tolerating clear liquid diet. REVIEW OF ORGAN SYSTEMS: No fevers or chills. No nausea or vomiting. No chest pain. PHYSICAL EXAM: VITALS: Reviewed CONSTITUTIONAL: Well developed and in no acute distress. EYES: Conjuctivae without sclera icterus. Extraocular movements grossly inta ct. HEAD, EARS, NOSE, THROAT: Moist buccal mucosa. Head is atraumatic, normocephalic. Hears conversational speech. No nasal drainage. RESPIRATORY: Non-labored respirations and equal bilateral excursions. No gross wheezes. CARDIOVASCULAR: Palpable 2+ radial pulses. ABDOMEN: Tender right lower quadrant. DANIELITO serosanguinous. MUSCULOSKELETAL: No clubbing, cyanosis SKIN: Warm and well perfused with good skin turgor. NEUROLOGIC: Cranial nerves II through XII grossly intact. No focal or lateral izing signs. PSYCH: Appropriate affect. Alert and oriented to person, place and time. Displays appropriate insight. CLINCAL LABS: Reviewed. WBC elevated at 19.9-14.4, leukocytosis, now 12.84. Hgb 11.3 to 10.9 ASSESSMENT: 1. Acute appendicitis with sepsis and perforation 2. Coronary artery disease 3. Peripheral vascular occlusive disease 4. Ischemic cardiomyopathy hypertensive heart disease 5. Urinary retention PLAN: 1. Continue IV antibiotics 2. Continue DANIELITO drain 3. Inpatient hospitalization advised for 3-4 days for antibiotic management and treatment of sepsis. 4. Flomax for urinary retention 5. Advance diet as tolerated Objective - Vital Signs Vital signs: Vital Signs Temp 97.8 F 06/28/21 06:40 Pulse 67 06/28/21 06:40 Resp 14 06/28/21 06:40 BP 133/58 06/28/21 06:40 Pulse Ox 93 L 06/28/21 06:40 FiO2 Intake & Output 06/27/21 06/28/21 06/28/21 18:59 06:59 18:59 Intake Total 1000 300 118 Output Total 10 271 Balance 1000 290 -153 Intake: IV 1000 300 Oral 118 Output: Post Void Residual 271 Estimated Blood Loss 10 Other: Voiding Method Toilet # Voids 1 0 # Bowel Movements 0 - Labs CBC & Chem 7: 06/28/21 06:43 06/28/21 06:43 Labs: Abnormal Lab Results - Last 24 Hours (Table) 06/26/21 06/27/21 06/27/21 Range/Units 15:39 06:37 06:37 WBC 14.39 H (4.50-10.00) X 10*3/uL RBC 3.65 L (4.40-5.60) X 10*6/uL Hgb 11.3 L (13.0-17.0) g/dL Hct 35.2 L (39.6-50.0) % Immature Gran # 0.08 H (0.00-0.04) X 10*3/uL Neutrophils # 12.33 H (1.80-7.70) X 10*3/uL Eosinophils # 0.02 L (0.04-0.35) X 10*3/uL Glucose 144 H (70-110) mg/dL POC Glucose (mg/dL) (75-99) mg/dL Hemoglobin A1c 8.4 H (0.0-6.0) % Calcium 7.9 L (8.7-10.3) mg/dL Total Protein 5.3 L (6.2-8.2) g/dL Albumin 3.2 L (3.8-4.9) g/dL Albumin/Globulin Ratio 1.52 L (1.60-3.17) g/dL 06/27/21 06/27/21 06/27/21 Range/Units 12:05 17:11 20:33 WBC (4.50-10.00) X 10*3/uL RBC (4.40-5.60) X 10*6/uL Hgb (13.0-17.0) g/dL Hct (39.6-50.0) % Immature Gran # (0.00-0.04) X 10*3/uL Neutrophils # (1.80-7.70) X 10*3/uL Eosinophils # (0.04-0.35) X 10*3/uL Glucose (70-110) mg/dL POC Glucose (mg/dL) 159 H 116 H 190 H (75-99) mg/dL Hemoglobin A1c (0.0-6.0) % Calcium (8.7-10.3) mg/dL Total Protein (6.2-8.2) g/dL Albumin (3.8-4.9) g/dL Albumin/Globulin Ratio (1.60-3.17) g/dL 06/28/21 Range/Units 07:31 WBC (4.50-10.00) X 10*3/uL RBC (4.40-5.60) X 10*6/uL Hgb (13.0-17.0) g/dL Hct (39.6-50.0) % Immature Gran # (0.00-0.04) X 10*3/uL Neutrophils # (1.80-7.70) X 10*3/uL Eosinophils # (0.04-0.35) X 10*3/uL Glucose (70-110) mg/dL POC Glucose (mg/dL) 199 H (75-99) mg/dL Hemoglobin A1c (0.0-6.0) % Calcium (8.7-10.3) mg/dL Total Protein (6.2-8.2) g/dL Albumin (3.8-4.9) g/dL Albumin/Globulin Ratio (1.60-3.17) g/dL Microbiology - Last 24 Hours (Table) 06/27/21 19:13 Gram Stain - Preliminary Appendix Wound Culture - Preliminary 06/27/21 19:13 Anaerobic Culture - Preliminary Appendix
[2021-06-28 09:33] LABS: Anion Gap 11.5 mmol/L (10.00-18.00); BUN/Creat Ratio 16.1 Ratio (12.00-20.00); Blood Urea Nitrogen 16.1 mg/dL (9.0-27.0); Calcium 7.5 mg/dL (8.7-10.3); Carbon Dioxide 20.5 mmol/L (20.0-27.5); Non-African American GFR(CKD) 75.9 (60.0-200.0); Potassium 4.7 mmol/L (3.5-5.5)
[2021-06-28 12:26] LABS: Glucose,Whole Blood 225 mg/dL (75-99)
[2021-06-28] MEDS: HYDROmorphone 0.5 MG/0.5 ML SYRINGE IVP PRN (12:39)
--- NOTE | 2021-06-28 15:31 | P.PN ---
Subjective Progress Note Date: 06/28/21 (delayed charting seen at 0745) Principal diagnosis: abdominal pain Patient is a 70-year-old male for history of coronary artery disease, hypertension, dyslipidemia, diabetes mellitus type 2 presented to the emergency department complaining of abdominal pain. In the ER he was only found to have appendicitis with reactive terminal ileitis. He was admitted to general surgery to consult for medical management. Patient seen and examined at bedside. States pain in his abdomen is different from yesterday but not fully resolved. He is however feeling overall slightly better. He does feel winded and had some difficulty getting to the bathroom. General: General: non toxic, no distress, appears at stated age Derm: warm, dry Head: atraumatic, normocephalic, symmetric Eyes: EOMI, no lid lag, anicteric sclera Mouth: no lip lesion, mucus membranes dry Cardiovascular: S1S2 reg, no murmur, positive posterior tibial pulse bilateral, Lungs: Crackles bilateral bases, no rhonchi, no rales , no accessory muscle use Abdominal: soft, +tender to palpation diffusely, no guarding, no appreciable organomegaly Ext: no gross muscle atrophy, no edema, no contractures Neuro: CN II-XI grossly intact, no focal neuro deficits Psych: Alert, oriented, appropriate affect , no distress, appears at stated age Assessment/plan: Acute appendicitis - s/p appy - on abx - pain control acute blood loss anemia - mild, anticipated - no indicated for transfusion HTN CAD s/p CABG and stents - lisinopril, amlodipine, lopressor, zetia, plavix on hold for surgery, lipitor DM 2 - hold metformin - SSI - follow BS - A1C 8.4 IV Lasix 1, stop fluids. Patient is medically optimized for discharge of his breathing improves this afternoon. Home medication reconciliation addressed. Thank you for allowing us to participate in the care of this pleasant patient. Do not hesitate to contact us with questions. Someone can be reached from the [facility] hospitalist group all hours of the day at [phone] or via perfect serve. Objective - Vital Signs Vital signs: Vital Signs Temp 97.8 F 06/28/21 14:50 Pulse 61 06/28/21 14:50 Resp 19 06/28/21 14:50 BP 120/59 06/28/21 14:50 Pulse Ox 97 06/28/21 14:50 FiO2 Intake & Output 06/27/21 06/28/21 06/28/21 18:59 06:59 18:59 Intake Total 1000 300 298 Output Total 10 291 Balance 1000 290 7 Intake: IV 1000 300 Oral 298 Output: Drainage 20 Abdomen 20 Post Void Residual 271 Estimated Blood Loss 10 Other: Voiding Method Toilet Toilet # Voids 1 0 # Bowel Movements 0 - Labs CBC & Chem 7: 06/28/21 06:43 06/28/21 06:43 Labs: Abnormal Lab Results - Last 24 Hours (Table) 06/26/21 06/27/21 06/27/21 Range/Units 15:39 17:11 20:33 WBC (4.50-10.00) X 10*3/uL RBC (4.40-5.60) X 10*6/uL Hgb (13.0-17.0) g/dL Hct (39.6-50.0) % Immature Gran # (0.00-0.04) X 10*3/uL Neutrophils # (1.80-7.70) X 10*3/uL Lymphocytes # (0.90-5.00) X 10*3/uL Eosinophils # (0.04-0.35) X 10*3/uL Glucose (70-110) mg/dL POC Glucose (mg/dL) 116 H 190 H (75-99) mg/dL Hemoglobin A1c 8.4 H (0.0-6.0) % Calcium (8.7-10.3) mg/dL 06/28/21 06/28/21 06/28/21 Range/Units 06:43 06:43 07:31 WBC 12.84 H (4.50-10.00) X 10*3/uL RBC 3.52 L (4.40-5.60) X 10*6/uL Hgb 10.9 L (13.0-17.0) g/dL Hct 32.9 L (39.6-50.0) % Immature Gran # 0.07 H (0.00-0.04) X 10*3/uL Neutrophils # 11.96 H (1.80-7.70) X 10*3/uL Lymphocytes # 0.43 L (0.90-5.00) X 10*3/uL Eosinophils # 0 L (0.04-0.35) X 10*3/uL Glucose 209 H (70-110) mg/dL POC Glucose (mg/dL) 199 H (75-99) mg/dL Hemoglobin A1c (0.0-6.0) % Calcium 7.5 L (8.7-10.3) mg/dL 06/28/21 Range/Units 12:24 WBC (4.50-10.00) X 10*3/uL RBC (4.40-5.60) X 10*6/uL Hgb (13.0-17.0) g/dL Hct (39.6-50.0) % Immature Gran # (0.00-0.04) X 10*3/uL Neutrophils # (1.80-7.70) X 10*3/uL Lymphocytes # (0.90-5.00) X 10*3/uL Eosinophils # (0.04-0.35) X 10*3/uL Glucose (70-110) mg/dL POC Glucose (mg/dL) 225 H (75-99) mg/dL Hemoglobin A1c (0.0-6.0) % Calcium (8.7-10.3) mg/dL Microbiology - Last 24 Hours (Table) 06/27/21 19:13 Gram Stain - Preliminary Appendix Wound Culture - Preliminary 06/27/21 19:13 Anaerobic Culture - Preliminary Appendix
[2021-06-28 17:54] LABS: Glucose,Whole Blood 227 mg/dL (75-99)
[2021-06-28] MEDS: EZETIMIBE 10 MG TAB PO SCH (20:21)
[2021-06-28 20:25] LABS: Glucose,Whole Blood 176 mg/dL (75-99)
[2021-06-28] MEDS ORDERED: ATORVASTATIN 40 MG TAB PO SCH (21:00)
[2021-06-29] MEDS: SODIUM CHLORIDE 0.9% 1,000 ML IV SCH ×2 (00:43→08:05)
[2021-06-29] MEDS: PIPERACILLIN-TAZOBACTAM 3.375 GM in SODIUM CHLORIDE 0.9% 100 ML IVPB SCH ×2 (03:50→11:44)
[2021-06-29 07:06] LABS: Glucose,Whole Blood 177 mg/dL (75-99)
[2021-06-29] MEDS: ASPIRIN 81 MG PO SCH (07:42)
[2021-06-29] MEDS: TAMSULOSIN 0.4 MG CAP.ER.24H PO SCH (07:42)
[2021-06-29] MEDS: METOPROLOL TARTRATE 50 MG TAB PO SCH (07:43)
[2021-06-29] MEDS: FAMOTIDINE 20 MG TAB PO SCH (07:43)
[2021-06-29] MEDS: lisinopriL 10 MG TAB PO SCH (07:43)
[2021-06-29] MEDS: amLODIPine 10 MG TAB PO SCH (07:43)
[2021-06-29] MEDS: HEPARIN SODIUM,PORCINE/PF 5,000 UNIT/0.5 ML SYRINGE SQ SCH (07:44)
[2021-06-29] MEDS: INSULIN ASPART (NovoLOG) 100 UNIT/ML VIAL SQ SCH ×2 (07:44→12:23)
[2021-06-29] MEDS: HYDROmorphone 0.5 MG/0.5 ML SYRINGE IVP PRN (07:48)
[2021-06-29 08:41] LABS: HCT 36.6 % (39.0-53.0); HGB 11.8 gm/dL (13.0-17.5); MCH 30.8 pg (25.0-35.0); MCHC 32.3 g/dL (31.0-37.0); MCV 95.3 fL (80.0-100.0); Mean Platelet Volume 8.5; Platelet Count 276 k/uL (150-450); RBC 3.84 m/uL (4.30-5.90); RDW 13.6 % (11.5-15.5); WBC 9.1 k/uL (3.8-10.6)
[2021-06-29] MEDS ORDERED: lisinopriL 10 MG TAB PO SCH (09:00)
[2021-06-29 11:48] LABS: African American GFR (CKD) >90 (>60 ml/min/1.73 sqM); Anion Gap 6 mmol/L; Blood Urea Nitrogen 11 mg/dL (9-20); Calcium 8.1 mg/dL (8.4-10.2); Carbon Dioxide 27 mmol/L (22-30); Chloride 104 mmol/L (98-107); Glucose 175 mg/dL (74-99); Non-African American GFR(CKD) >90 (>60 ml/min/1.73 sqM); Sodium 137 mmol/L (137-145)
[2021-06-29 11:59] LABS: Glucose,Whole Blood 199 mg/dL (75-99)
[2021-06-29 13:49] VITALS: BP 126/57; PULSE 60; RESP 16; TEMP 97.7
--- NOTE | 2021-06-29 14:43 | P.DS ---
Providers Date of admission: 06/27/21 19:46 Expected date of discharge: 06/29/21 Attending physician: Argenis Al Consults: 06/26/21 18:11 Consult Physician Urgent Consulting Provider: Zhane Vargas Consult Reason/Comments: medical management Do you want consulting provider notified?: Yes 06/27/21 09:24 Consult Physician Urgent Consulting Provider: Vinny Jimenez Consult Reason/Comments: Cardiac risk assessment, cardiac history Do you want consulting provider notified?: Yes Primary care physician: Zachary Tobias MD Hospital Course: Discharge diagnosis 1. Gangrenous ruptured appendicitis with sepsis 2. Coronary artery disease 3. Peripheral vascular occlusive disease 4. Ischemic cardiomyopathy hypertensive heart disease 5. Urinary retention Hospital course This is a 70-year-old male who presented with acute appendicitis with evidence of perforation and sepsis. He is status post robotic laparoscopic appendectomy with drainage of periappendiceal abscess and lysis of adhesions. Patient's pain is controlled. He is tolerating diet. He is afebrile. His white count has normalized. Patient is up and ambulating. He is stable for discharge. Patient will be discharged with antibiotics. Physician Moving Picture Producer note has been reviewed by physician. Signing provider agrees with the documented findings, assessment, and plan of care. CHIEF COMPLAINT: Appendicitis with sepsis HISTORY OF PRESENT ILLNESS: The patient is a 70-year-old male who presented with ruptured appendicitis and sepsis. He had reported no further abdominal pain. He reported no fevers or chills. REVIEW OF ORGAN SYSTEMS: No fevers or chills. No nausea or vomiting. No chest pain. PHYSICAL EXAM: VITALS: Reviewed CONSTITUTIONAL: Well developed and in no acute distress. EYES: Conjuctivae without sclera icterus. Extraocular movements grossly intact. HEAD, EARS, NOSE, THROAT: Moist buccal mucosa. Head is atraumatic, normocephalic. Hears conversational speech. No nasal drainage. RESPIRATORY: Non-labored respirations and equal bilateral excursions. No gross wheezes. CARDIOVASCULAR: Palpable 2+ radial pulses. ABDOMEN: DANIELITO serosanguineous. Incision intact. MUSCULOSKELETAL: No clubbing, cyanosis SKIN: Warm and well perfused with good skin turgor. NEUROLOGIC: Cranial nerves II through XII grossly intact. No focal or lateralizing signs. PSYCH: Appropriate affect. Alert and oriented to person, place and time. Displays appropriate insight. CLINCAL LABS: Reviewed. WBC elevated at 19.9 on admission now normal 9.1. Hemoglobin improved 10.9-11.8. ASSESSMENT: 1. Gangrenous ruptured appendicitis 2. Coronary artery disease with history of stent 3. Peripheral vascular occlusive disease 4. Hypertensive heart disease 5. Ischemic heart disease 6. Obesity due to excess calories, BMI 30.1 7. Diabetes type 2, [id number] 8. Lactic acidosis due to dehydration 9. Sepsis PLAN: 1. Discharge home with DANIELITO drain 2. Antibiotics for 10 days advised 3. Diet as tolerated Procedures: Procedure(s) Performed: 1. Robotic-assisted daVinci Xi laparoscopic lysis of adhesions over 60% of the case 2. Robotic-assisted daVinci Xi laparoscopic appendectomy with drainage of periappendiceal abscess 3. Placement of DANIELITO drain #19 right lower quadrant/pelvis 4. Peritoneal lavage 1000 mL normal saline Anesthesia: GETA, local Estimated Blood Loss (ml): 10 Pathology: other (appendix, aerobic and anerobic culture of peritoneal fluid from peritonitis) Condition: stable Disposition: floor Operative Findings: 1. Localized abscess over 10-mL drained right lower quadrant 2. Gangrenous ruptured purulent appendicitis at tip of appendix 3. Abdomen irrigated with 1000-mL normal saline 4. DANIELITO drain placed at right lower quadrant of abscess pocket drained 5. Staple line hemostatic Patient Condition at Discharge: Stable Plan - Discharge Summary Discharge Rx Participant: No New Discharge Prescriptions: New Amoxic-Pot Clav 875-125Mg [Augmentin 875-125] 1 tab PO BID 10 Days #20 tab Acetaminophen Tab [Tylenol] 1,000 mg PO Q6HR PRN #30 tablet PRN Reason: Pain Continue Ezetimibe [Zetia] 10 mg PO HS Aspirin [Adult Low Dose Aspirin EC] 81 mg PO DAILY amLODIPine BESYLATE 10 mg PO DAILY Metoprolol Tartrate [Lopressor] 100 mg PO DAILY lisinopriL [Zestril] 10 mg PO DAILY Atorvastatin [Lipitor] 40 mg PO HS Nitroglycerin Sl Tabs [Nitrostat] 0.4 mg SUBLINGUAL Q5M PRN PRN Reason: Chest Pain Clopidogrel Bisulfate [Plavix] 75 mg PO DAILY #90 tab metFORMIN HCL [Glucophage] 1,000 mg PO BID Discharge Medication List Aspirin [Adult Low Dose Aspirin EC] 81 mg PO DAILY 05/15/19 [History] Atorvastatin [Lipitor] 40 mg PO HS 05/15/19 [History] Ezetimibe [Zetia] 10 mg PO HS 05/15/19 [History] Metoprolol Tartrate [Lopressor] 100 mg PO DAILY 05/15/19 [History] Nitroglycerin Sl Tabs [Nitrostat] 0.4 mg SUBLINGUAL Q5M PRN 05/15/19 [History] amLODIPine BESYLATE 10 mg PO DAILY 05/15/19 [History] lisinopriL [Zestril] 10 mg PO DAILY 05/15/19 [History] Clopidogrel Bisulfate [Plavix] 75 mg PO DAILY #90 tab 12/09/20 [Rx] metFORMIN HCL [Glucophage] 1,000 mg PO BID 01/12/21 [History] Acetaminophen Tab [Tylenol] 1,000 mg PO Q6HR PRN #30 tablet 06/29/21 [Rx] Amoxic-Pot Clav 875-125Mg [Augmentin 875-125] 1 tab PO BID 10 Days #20 tab 06/29/21 [Rx] Follow up Appointment(s)/Referral(s): Darien Sena MD [STAFF PHYSICIAN] - 2 Weeks Zachary Tobias MD [Primary Care Provider] - 1-2 days Argenis Al MD [STAFF PHYSICIAN] - 07/05/21 Patient Instructions/Handouts: Laparoscopic Appendectomy (DC) Activity/Diet/Wound Care/Special Instructions: Wear abdominal binder at all times for comfort. No lifting over 4 pounds in 4 weeks You May shower. No bath tub soaks for two weeks Diet Regular Keep a log of DANIELITO drain output and bring with you to your follow-up appointment Milk/strip drains 2-3 times a day Discharge Disposition: HOME SELF-CARE
--- NOTE | 2021-06-29 16:26 | P.PN ---
Subjective Progress Note Date: 06/29/21 (delayed charting seen at 0815) Principal diagnosis: abdominal pain Patient is a 70-year-old male for history of coronary artery disease, hypertension, dyslipidemia, diabetes mellitus type 2 presented to the emergency department complaining of abdominal pain. In the ER he was only found to have appendicitis with reactive terminal ileitis. He was admitted to general surgery to consult for medical management. Patient seen and examined at bedside. Pain is getting better every day. His shortness of breath is fully resolved. He has been tolerating a diet and passing gas. General: General: non toxic, no distress, appears at stated age Derm: warm, dry Head: atraumatic, normocephalic, symmetric Eyes: EOMI, no lid lag, anicteric sclera Mouth: no lip lesion, mucus membranes dry Cardiovascular: S1S2 reg, no murmur, positive posterior tibial pulse bilateral, Lungs: Crackles bilateral bases, no rhonchi, no rales , no accessory muscle use Abdominal: soft, +tender to palpation diffusely, no guarding, no appreciable organomegaly Ext: no gross muscle atrophy, no edema, no contractures Neuro: CN II-XI grossly intact, no focal neuro deficits Psych: Alert, oriented, appropriate affect , no distress, appears at stated age Assessment/plan: Acute appendicitis - s/p appy - on abx - pain control - management per surgery acute blood loss anemia - mild, anticipated - no indicated for transfusion HTN CAD s/p CABG and stents - lisinopril, amlodipine, lopressor, zetia, plavix , lipitor DM 2 - hold metformin--resume on discharge - SSI - follow BS - A1C 8.4 Patient is medically optimized for discharge of his breathing improves this afternoon. Home medication reconciliation addressed. Thank you for allowing us to participate in the care of this pleasant patient. Do not hesitate to contact us with questions. Someone can be reached from the [facility] hospitalist group all hours of the day at [phone] or via perfect serve. Objective - Vital Signs Vital signs: Vital Signs Temp 97.7 F 06/29/21 13:48 Pulse 60 06/29/21 13:48 Resp 16 06/29/21 13:48 BP 126/57 06/29/21 13:48 Pulse Ox 93 L 06/29/21 13:48 FiO2 Intake & Output 06/28/21 06/29/21 06/29/21 18:59 06:59 18:59 Intake Total 298 118 Output Total 321 30 Balance -23 88 Intake: Oral 298 118 Output: Drainage 50 30 Abdomen 50 30 Post Void Residual 271 Other: Voiding Method Toilet Toilet Toilet # Voids 2 3 2 # Bowel Movements 0 - Labs CBC & Chem 7: 06/29/21 08:00 06/29/21 08:00 Labs: Abnormal Lab Results - Last 24 Hours (Table) 06/28/21 06/28/21 06/29/21 Range/Units 17:52 20:23 07:03 RBC (4.30-5.90) m/uL Hgb (13.0-17.5) gm/dL Hct (39.0-53.0) % Glucose (74-99) mg/dL POC Glucose (mg/dL) 227 H 176 H 177 H (75-99) mg/dL Calcium (8.4-10.2) mg/dL 06/29/21 06/29/21 06/29/21 Range/Units 08:00 08:00 11:55 RBC 3.84 L (4.30-5.90) m/uL Hgb 11.8 L (13.0-17.5) gm/dL Hct 36.6 L (39.0-53.0) % Glucose 175 H (74-99) mg/dL POC Glucose (mg/dL) 199 H (75-99) mg/dL Calcium 8.1 L (8.4-10.2) mg/dL Microbiology - Last 24 Hours (Table) 06/27/21 19:13 Gram Stain - Preliminary Appendix Wound Culture - Preliminary Gram Neg Bacilli
== END 2021-06-29 15:00 | disposition home or self-care (01) | DRG 853 ==
LOC: EC 14:41 → 6NMEDSUR 18:15 → OBSVTOIN 06-27 19:46
PROVIDERS: ADMIT Surgery Plastic and Reconstructive Surgery; ATTEND Surgery Plastic and Reconstructive Surgery
PROC: 0DNU4ZZ Release Omentum, Percutaneous Endoscopic Approach (ICD-10-PCS; 2021-06-27)
PROC: 0W9G40Z Drainage of Peritoneal Cavity with Drainage Device, Percutaneous Endoscopic Approach (ICD-10-PCS; 2021-06-27)
PROC: 0DN84ZZ Release Small Intestine, Percutaneous Endoscopic Approach (ICD-10-PCS; 2021-06-27)
PROC: 0DNW4ZZ Release Peritoneum, Percutaneous Endoscopic Approach (ICD-10-PCS; 2021-06-27)
PROC: 3E1M38Z Irrigation of Peritoneal Cavity using Irrigating Substance, Percutaneous Approach (ICD-10-PCS; 2021-06-27)
PROC: 8E0W4CZ Robotic Assisted Procedure of Trunk Region, Percutaneous Endoscopic Approach (ICD-10-PCS; 2021-06-27)
PROC: 0DTJ4ZZ Resection of Appendix, Percutaneous Endoscopic Approach (ICD-10-PCS; principal; 2021-06-27 10:40)
DX: A41.9 Sepsis, unspecified organism (principal); K35.33 Acute appendicitis with perforation, localized peritonitis, and gangrene, with abscess; D62 Acute posthemorrhagic anemia; E11.52 Type 2 diabetes mellitus with diabetic peripheral angiopathy with gangrene; E87.2 Acidosis; K50.00 Crohn's disease of small intestine without complications; Z68.30 Body mass index [BMI] 30.0-30.9, adult; E66.09 Other obesity due to excess calories; I25.10 Atherosclerotic heart disease of native coronary artery without angina pectoris; E86.0 Dehydration; I25.5 Ischemic cardiomyopathy; K66.0 Peritoneal adhesions (postprocedural) (postinfection); E78.5 Hyperlipidemia, unspecified; I10 Essential (primary) hypertension; I08.1 Rheumatic disorders of both mitral and tricuspid valves; I44.7 Left bundle-branch block, unspecified; N40.1 Benign prostatic hyperplasia with lower urinary tract symptoms; R33.8 Other retention of urine; Z79.02 Long term (current) use of antithrombotics/antiplatelets; Z79.82 Long term (current) use of aspirin; Z79.899 Other long term (current) drug therapy; Z79.84 Long term (current) use of oral hypoglycemic drugs; Z80.0 Family history of malignant neoplasm of digestive organs; Z87.891 Personal history of nicotine dependence; Z95.1 Presence of aortocoronary bypass graft; Z95.5 Presence of coronary angioplasty implant and graft; Z95.820 Peripheral vascular angioplasty status with implants and grafts
CPT/HCPCS: 36415; 74177; 80048; 80053; 81003; 82150; 82803; 83036; 83605; 83690; 84153; 84484; 85025; 85027; 85610; 85730; 87070; 87075; 87077; 87186; 87205; 88304; 93005; 96361; 96365; 96375; 99285

== ENCOUNTER → 2021-08-05 | Outpatient (CLI) | payer MEDICARE ==
--- NOTE | 2021-08-05 09:11 | US ---
EXAMINATION TYPE: US duplex aorta DATE OF EXAM: 08/05/2021 COMPARISON: CLINICAL HISTORY: Z13.6 encounter for screening for cardiovascular. Screening Limited due to patient body habitus and overlying bowel gas EXAM MEASUREMENTS: Abdominal Aorta: Proximal: 2.0 x 2.2 cm Mid: 1.6 x 1.9 cm Distal: 1.5 x 1.7 cm Bifurcation: Right- 1.0 cm Left- 1.1 cm Sag not visualized due to overlying bowel gas IMPRESSION: 1. No ultrasound changes to suggest abdominal aortic aneurysm. There is some limitation on the exam.
== END | disposition home or self-care (01) ==
LOC: RADUSWWP 08:09
PROVIDERS: ATTEND Family Medicine
DX: Z13.6 Encounter for screening for cardiovascular disorders (principal)
CPT/HCPCS: 93979

== ENCOUNTER → 2022-01-18 | Outpatient (CLI) | payer MEDICARE ==
[2022-01-18 14:43] LABS: ALT 37 U/L (10-49); AST 30 U/L (14-35); African American GFR (CKD) 102.3 (60.0-200.0); Albumin 4.2 g/dL (3.8-4.9); Alkaline Phosphatase 66 U/L (41-126); BUN/Creat Ratio 14.81 Ratio (12.00-20.00); Blood Urea Nitrogen 12.4 mg/dL (9.0-27.0); Calcium 9.6 mg/dL (8.7-10.3); Carbon Dioxide 27.2 mmol/L (20.0-27.5); Chloride 105 mmol/L (96-109); Chol/HDL Ratio 4.19 Ratio; Globulin 2.3 g/dL (1.6-3.3); Glucose 196 mg/dL (70-110); LDL Cholesterol,Calculated 73.4 mg/dL (0.0-131.0); Non-African American GFR(CKD) 88.2 (60.0-200.0); Potassium 4.6 mmol/L (3.5-5.5); Sodium 143 mmol/L (135-145); Total Protein 6.5 g/dL (6.2-8.2)
== END | disposition home or self-care (01) ==
LOC: LABWHC1 09:56
PROVIDERS: ATTEND Internal Medicine Interventional Cardiology
DX: E78.2 Mixed hyperlipidemia (principal)
CPT/HCPCS: 36415; 80053; 80061

== ENCOUNTER → 2022-07-26 | Outpatient (CLI) | payer MEDICARE ==
[2022-07-26 10:15] LABS: ALT 47 U/L (4-49); AST 41 U/L (17-59); African American GFR (CKD) >90 (>60 ml/min/1.73 sqM); Albumin 4.1 g/dL (3.5-5.0); Albumin/Globulin Ratio 1.6; Alkaline Phosphatase 71 U/L (38-126); Anion Gap 13 mmol/L; Blood Urea Nitrogen 12 mg/dL (9-20); Calcium 9.3 mg/dL (8.4-10.2); Carbon Dioxide 23 mmol/L (22-30); Chloride 104 mmol/L (98-107); Globulin 2.6 g/dL; Glucose 237 mg/dL (74-99); Non-African American GFR(CKD) 87 (>60 ml/min/1.73 sqM); Potassium 4.7 mmol/L (3.5-5.1); Sodium 140 mmol/L (137-145); Total Bilirubin 0.7 mg/dL (0.2-1.3); Total Protein 6.7 g/dL (6.3-8.2)
[2022-07-26 22:46] LABS: Chol/HDL Ratio 3.53 Ratio; LDL Cholesterol,Calculated 30.9 mg/dL (0.0-131.0)
== END | disposition home or self-care (01) ==
LOC: LABWHC1 08:36
PROVIDERS: ATTEND Internal Medicine Interventional Cardiology
DX: E78.2 Mixed hyperlipidemia (principal)
CPT/HCPCS: 36415; 80053; 80061

== ENCOUNTER 2022-12-01 05:48 | Day surgery (SDC) | payer MEDICARE ==
[2022-12-01] MEDS ORDERED: ALPRAZolam 0.25 MG TAB PO PRN (05:54)
[2022-12-01] MEDS ORDERED: SODIUM CHLORIDE 0.9% 1,000 ML in EMPTY BAG 1 BAG IV ONE (05:54)
[2022-12-01] MEDS ORDERED: ASPIRIN 325 MG TAB PO PRN (05:54)
[2022-12-01] MEDS ORDERED: HEPARIN SODIUM,PORCINE 10,000 UNIT in SODIUM CHLORIDE 0.9% 1,000 ML IRRIGATION PRN (05:54)
[2022-12-01] MEDS ORDERED: ALPRAZolam 0.5 MG TAB PO PRN (05:54)
[2022-12-01] MEDS ORDERED: ZOLPIDEM 5 MG TAB PO PRN (05:54)
[2022-12-01] MEDS ORDERED: HEPARIN SODIUM,PORCINE (1 ML) 2,500 UNIT in SODIUM CHLORIDE 0.9% 250 ML IRRIGATION PRN (05:54)
[2022-12-01 06:36] VITALS: RESP 18; TEMP 97.7
[2022-12-01 06:37] LABS: Glucose,Whole Blood 154 mg/dL (70-110)
[2022-12-01 06:38] LABS: Basophils # (A) 0.1 k/uL (0-0.2); Basophils % (A) 1 %; Eosinophils # (A) 0.3 k/uL (0-0.7); Eosinophils % (A) 5 %; HCT 42.9 % (39.0-53.0); HGB 14.4 gm/dL (13.0-17.5); Lymphocytes # (A) 1.7 k/uL (1.0-4.8); Lymphocytes % (A) 26 %; MCH 31.8 pg (25.0-35.0); MCHC 33.6 g/dL (31.0-37.0); MCV 94.5 fL (80.0-100.0); Mean Platelet Volume 7.7; Monocytes # (A) 0.5 k/uL (0-1.0); Monocytes % (A) 8 %; Neutrophils # (A) 3.9 k/uL (1.3-7.7); Neutrophils % (A) 60 %; Platelet Count 286 k/uL (150-450); RBC 4.53 m/uL (4.30-5.90); RDW 13.2 % (11.5-15.5); WBC 6.5 k/uL (3.8-10.6)
[2022-12-01 06:48] LABS: African American GFR (CKD) >90 (>60 ml/min/1.73 sqM); Anion Gap 13 mmol/L; Blood Urea Nitrogen 12 mg/dL (9-20); Calcium 9.5 mg/dL (8.4-10.2); Carbon Dioxide 23 mmol/L (22-30); Chloride 105 mmol/L (98-107); Glucose 164 mg/dL (74-99); Non-African American GFR(CKD) >90 (>60 ml/min/1.73 sqM); Potassium 4.1 mmol/L (3.5-5.1); Sodium 141 mmol/L (137-145)
[2022-12-01] MEDS ORDERED: LIDOCAINE 1% INJ 10MG/ML (20 ML MDV) ONE (07:21)
[2022-12-01] MEDS ORDERED: MIDAZOLAM 2 MG/2 ML VIAL IVP ONE (07:52)
[2022-12-01] MEDS ORDERED: LIDOCAINE 1% INJ 10MG/ML (20 ML MDV) SQ ONE (07:55)
[2022-12-01] MEDS ORDERED: VERAPAMIL 2.5 MG/ML 2 ML AMP ONE (07:55)
[2022-12-01] MEDS ORDERED: NITROGLYCERIN SL TABS 0.4 MG TAB SUBLINGUAL ONE ×2 (08:17→08:18)
[2022-12-01] MEDS ORDERED: NALOXONE 0.4 MG/ML 1 ML VIAL IVP PRN (08:18)
[2022-12-01] MEDS ORDERED: IOPAMIDOL-370 100ML BTL INJ ONE (08:20)
[2022-12-01] MEDS ORDERED: SODIUM CHLORIDE 0.9% 1,000 ML in EMPTY BAG 1 BAG IV SCH (08:30)
--- NOTE | 2022-12-01 08:39 | IR ---
EXAMINATION TYPE: IR angio abdominal w runoff DATE OF EXAM: 12/01/2022 COMPARISON: 11/15/2020 HISTORY: LEG PAIN, 1.7 MIN FLUORO TIME, total DAP 26.0 Gycm2 Fluoroscopy was provided to the referring clinician.
--- NOTE | 2022-12-01 08:57 | P.PCN ---
Date of Procedure: 12/01/22 Operative Findings: AN ABDOMINAL AORTOGRAM AND BILATERAL LOWER EXTREMITIES RUNOFF PERFORMING PHYSICIAN: Vinny Jimenez MD PROCEDURE PERFORMED: 1. An abdominal aortogram 2. Bilateral lower extremities runoff 3. Ultrasound-guided access of the right common femoral artery INDICATION: Bilateral lower extremity discomfort consistent with intermittent claudication in this 72-year-old gentleman who is known to have PAD with prior angioplasty of bilateral iliacs and bilateral SFAs. He underwent an arterial duplex study and that came in to be abnormal concerning for severe PAD COMPLICATION: None LEVEL OF SEDATION: Moderate was sedation length of 20 minutes APPROACH: Right common femoral artery PROCEDURE DESCRIPTION: After obtaining informed consent and explaining the procedure benefits, risks, and complications, the patient was brought to the cardiac laborer powerhouse. Initially attempting accessing the right radial artery was unsuccessful because the wire could not be advanced. At that point the right groin was prepped and draped in sterile fashion. The right common femoral artery was cannulated using micropuncture technique, under ultrasound guidance. A micropuncture wire was advanced, and the micropuncture sheath was advanced over the wire, then the micropuncture sheath was exchanged over an 0.35 wire into a 5-[place] sheath dilator assembly then the wire and dilator were removed and sheath was flushed. We did an abdominal aortogram and bilateral lower extremities runoff using 5- [place] pigtail catheter using a power injection. The catheter was initially placed at the level of the renal arteries, and it was pulled into above the bifurcation of the aorta into right and left common iliac arteries. The procedure was completed and there was no complications. SELECTIVE PERIPHERAL ANGIOGRAM: The abdominal aorta: Is angiographically normal. The common iliac arteries: The right common iliac artery is a stented and the stent is patent. The left common iliac artery is a stented was intermediate in-stent restenosis The external iliac arteries: The right external iliac artery is a stented and the stent is patent. The left external iliac artery has moderate to severe in-stent restenosis The internal iliac arteries: Both internal iliac arteries are patent The common femoral arteries: Both him and femoral arteries appeared to have [id number] disease appeared to be nonobstructive Superficial femoral arteries: The right SFA has a critical lesion in the midportion. The left SFA has critical lesion in the proximal and midportion Popliteal arteries: Both popliteal appeared to have [id number] disease Below the knees: There are 2 vessels run off below the knee with anterior tibial and posterior tibial CONCLUSION: Intermediate left common iliac and left external iliac lesions Critical bilateral SFA disease POSTPROCEDURE MANAGEMENT: LABORATORY MANAGER of the SFA.
[2022-12-01] MEDS ORDERED: ACETAMINOPHEN TAB 325 MG TAB PO STA (12:04)
[2022-12-01] MEDS ORDERED: ACETAMINOPHEN TAB 325 MG TAB ONE (12:04)
[2022-12-01 16:44] VITALS: BP 97/53; PULSE 48
== END 2022-12-01 16:30 | disposition home or self-care (01) ==
LOC: CATHCVL 05:48
PROVIDERS: ATTEND Internal Medicine Interventional Cardiology
DX: I70.213 Atherosclerosis of native arteries of extremities with intermittent claudication, bilateral legs (principal); I10 Essential (primary) hypertension; E78.5 Hyperlipidemia, unspecified; E11.9 Type 2 diabetes mellitus without complications; F17.210 Nicotine dependence, cigarettes, uncomplicated; Z79.82 Long term (current) use of aspirin; Z79.899 Other long term (current) drug therapy
CPT/HCPCS: 36200; 75625; 75716; 76937; 80048; 85025; C1894 ×2; C1769 ×3; J2250; J2001; Q9967

== ENCOUNTER → 2024-02-29 | Outpatient (CLI) | payer MEDICARE ==
[2024-02-29 15:58] LABS: ALT 49 U/L (10-49); AST 30 U/L (14-35); Albumin 4.2 g/dL (3.8-4.9); Albumin/Globulin Ratio 1.83 Ratio (1.60-3.17); Alkaline Phosphatase 73 U/L (41-126); BUN/Creat Ratio 16.67 Ratio (12.00-20.00); Calcium 9.3 mg/dL (8.7-10.3); Carbon Dioxide 24.3 mmol/L (21.6-31.8); Chloride 105 mmol/L (96-109); Chol/HDL Ratio 3.52 Ratio; Globulin 2.3 g/dL (1.6-3.3); Glucose 212 mg/dL (70-110); LDL Cholesterol,Calculated 56.1 mg/dL (0.0-131.0); Potassium 4.6 mmol/L (3.5-5.5); Sodium 142 mmol/L (135-145); Total Bilirubin 0.4 mg/dL (0.3-1.2); Total Protein 6.5 g/dL (6.2-8.2)
== END | disposition home or self-care (01) ==
LOC: LABWHC1 09:00
PROVIDERS: ATTEND Internal Medicine Interventional Cardiology
DX: E78.2 Mixed hyperlipidemia (principal)
CPT/HCPCS: 36415; 80053; 80061